=== PATIENT | male | born 1950 | race Caucasian/White ===

== ENCOUNTER → 2017-07-06 | Outpatient (CLI) | payer OTHER, BC ==
[~2017-07-06] MED LIST: ATEN50TA8 PO; FINA5TAB4 PO; FLM4 PO; MAGN400T6 PO; OXGN; POTA20TA16 PO; PROB1TAB16 PO; SPIR25TA PO; TORS20TA2 PO; WARF5TAB7 PO; WARF7.5T4 PO
--- NOTE | 2017-07-06 08:46 | DIAGNOSTIC IMAGING REPORT ---
NUCLEAR PULMONARY VENTILATION/PERFUSION SCAN CLINICAL HISTORY: Pulmonary artery hypertension.. COMPARISON STUDY: Chest x-ray dated 10/22/2015.. TECHNIQUE: Initially, ventilation images of both lungs are obtained following the inhalation of 33.7 mCi of aerosolized technetium 99m DTPA. Subsequently, perfusion images of both lungs were obtained following the IV administration of 5.7 mCi of technetium 99m MAA. Ventilation and perfusion images were acquired in the anterior, posterior, and oblique projections. FINDINGS: A chest x-ray performed 10/22/2015 shows cardiomegaly and advanced parenchymal lung disease The ventilation of both lungs is markedly heterogeneous. Perfusion of both lungs is markedly heterogeneous with numerous subsegmental perfusion defects identified. IMPRESSION: Findings are indeterminant for pulmonary embolus which is not excluded. Electronically signed by: Jason Mir M.D. 07/06/2017 8:45 AM Dictated Date/Time: 07/06/2017 8:43 AM
--- NOTE | 2017-07-06 09:22 | DIAGNOSTIC IMAGING REPORT ---
TWO VIEW CHEST CLINICAL HISTORY: Pulmonary hypertension. FINDINGS: PA and lateral chest radiographs are compared to study dated 10/20/2015. The heart is enlarged and there is atherosclerotic calcification of the thoracic aorta. The pulmonary vasculature is noncongested. There is no lobar consolidation or pleural effusion. Changes of interstitial lung disease are similar to previous. There is no pneumothorax. The bony thorax appears intact. A benign-appearing sclerotic lesion is noted in the left humeral head. IMPRESSION: 1. No acute cardiopulmonary abnormality. 2. Cardiomegaly and changes of chronic interstitial lung disease are similar to previous. Electronically signed by: Jason Mir M.D. 07/06/2017 9:21 AM Dictated Date/Time: 07/06/2017 9:14 AM
== END | disposition home or self-care (01) ==
LOC: C.NUCL 07:27
PROVIDERS: ATTEND Internal Medicine Pulmonary Disease
DX: I27.2 Other secondary pulmonary hypertension (principal)

== ENCOUNTER 2020-03-12 17:16 | Inpatient (IN) ==
--- OUTSIDE RECORDS SUMMARY | 2020-03-12 17:19 | External Medical Summary | Continuity of Care Document ---
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 Quantity: 90 Refills: 3 Atenolol 100 MG Oral Tablet; TAKE 1 TABLET DAILY DIRECTED . Refills: 0 hydroCHLOROthiazide 25 MG Oral Tablet; TAKE 1 TABLET DAILY. Quantity: 30 Refills: 5 Lisinopril 20 MG Oral Tablet; TAKE 1 TABLET DAILY. Quantity: 30 Refills: 5 Coumadin 5 MG Oral Tablet; TAKE DIRECTED. Quantity: 50 Refills: 5 Nasonex 50 MCG/ACT Nasal Suspension; ins till 2 sprays into each nostril once daily VINCE Arce Start: 17-Feb-2013 Quantity: 1 17 GM Inhaler Refills: 0 Procedures History of Complete Colonoscopy Status: Completed History of Hernia Repair Status: Complet ed History of Shoulder Surgery Status: Comp leted Immunizations Immunizations not documented Family History Unknown Family Member Family history of Colon Cancer (V16.0) Status: Active C omments: Family History Family history of Hypertension (V17.49) Status: Active Comments: Family History Family history of Thyroid Cancer Status: Active Comment s: Family History Social History - Smoking Status Smokes tobacco daily Plan of Treatment Planned Observations Planned Goals not documented Results No Known Results Results not documented
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
[2020-03-12 17:42] LABS: Appearance Urine Cloudy (Clear); Bacteria Urine Automated Negative (Negative); Bilirubin Urine Negative (Negative); Blood Urine Negative (Negative); Color Urine Dark Yellow; Epithelial Cell Urine Auto 0-5 /lpf (0-5); Glucose Urine UA Negative (Negative); Ketones Urine Negative (Negative); Leukocyte Esterase Urine Negative (Negative); Nitrite Urine Negative (Negative); Protein Urine Negative (Negative); RBC Urine Automated 0-4 /hpf (0-4); Urobilinogen Urine Negative (Negative); WBC Urine Automated 0 /hpf (0-5); pH Urine 7.5 (4.5-7.5)
--- NOTE | 2020-03-12 17:54 | XRay Report ---
XR chest 1V portable CLINICAL HISTORY: Altered mental status. COMPARISON STUDY: Chest radiograph October 22, 2015 and July 06, 2017. FINDINGS: No pneumothorax or pleural effusion is noted. Diffuse interstitial thickening is similar to prior exams. No superimposed consolidation is noted. Moderate cardiomegaly is unchanged. Bilateral h ilar prominence is unchanged. IMPRESSION: 1. No change in diffuse interstitial thickening suggestive of interstitial lung disease. No superimpo sed consolidation. 2. Stable cardiomegaly. ACT 112: Negative or not required by law. Electronically signed by: Ray Matthew M.D. 03/12/2020 5:53 PM
[2020-03-12 18:06] LABS: Basophils # (auto) 0.02 K/uL (0-0.2); Basophils % (auto) 0.3 %; Eosinophils # (auto) 0.03 K/uL (0-0.5); Eosinophils % (auto) 0.4 %; Hematocrit (blood only) 48.3 % (42-52); Hemoglobin 16.3 g/dL (14.0-18.0); Immature Granulocytes # (auto) 0.02 K/uL (0.00-0.02); Immature Granulocytes % (auto) 0.3 %; Lymphocytes # (auto) 1.23 K/uL (1.2-3.4); Mean Corpuscular Hemoglobin 32.4 pg (25-34); Mean Corpuscular Hgb Conc 33.7 g/dL (32-36); Mean Platelet Volume 10.2 fL (7.4-10.4); Monocytes # (auto) 0.46 K/uL (0.11-0.59); Monocytes % (auto) 6.7 %; Neutrophils # (auto) 5.08 K/uL (1.4-6.5); Neutrophils % (auto) 74.3 %; Platelet Count 124 K/uL (130-400); RDW Coefficient of Variation 16.6 % (11.5-14.5); RDW Standard Deviation 58.2 fL (36.4-46.3); Red Blood Count 5.03 M/uL (4.7-6.1); White Blood Count 6.84 K/uL (4.8-10.8)
[2020-03-12 18:08] LABS: Base Excess VBG 2.7 mEq/L; HCO3 VBG 30 mmol/L; PCO2 VBG 54 mmHg (38-50); PO2 VBG 25 mmHg; pH VBG 7.36 (7.36-7.41)
[2020-03-12 18:15] LABS: Amphetamines+Metham, Urine Neg (Neg); Barbiturates, Urine Neg (Neg); Benzodiazepine, Urine Neg (Neg); Cocaine, Urine Neg (Neg); MDMA (Ecstacy), Urine Neg (Neg); Methadone, Urine Neg (Neg); Opiate, Urine Neg (Neg); Phencyclidine, Urine Neg (Neg)
[2020-03-12 18:18] LABS: INR 2.3 (0.9-1.1); Partial Thromboplastin Ratio 1.2; Partial Thromboplastin Time 34.2 Seconds (21.0-31.0); Prothrombin Time 23.1 Seconds (9.0-12.0)
--- NOTE | 2020-03-12 18:18 | CT Scan Report ---
CT OF THE HEAD WITHOUT CONTRAST CLINICAL HISTORY: altered MS COMPARISON STUDY: No previous studies for comparison. CT DOSE: 729.78 mGycm TECHNIQUE: Helical axial images of the head were obtained without IV contrast. Automated exposure con trol was utilized for the study. A dose lowering technique was utilized adhering to the principles o f ALARA. FINDINGS: No acute intracranial hemorrhage, midline shift or mass effect is present. The ventricular system is unremarkable. The basilar cisterns are patent. White matter hypodensity suggests small vess el disease. No extra-axial collections are present. There are no findings to suggest acute dural sinu s thrombosis or acute territorial infarct. No significant calvarial abnormalities are present. Visual ized portions of the sinuses and mastoid air cells are clear with the exception of minimal calcific t hickening/secretions within the left maxillary sinus. IMPRESSION: No acute intracranial findings. ACT 112: Negative or not required by law. Electronically signed by: Ray Matthew M.D. 03/12/2020 6:17 PM
[2020-03-12 18:25] LABS: Alanine Aminotransferase 8 U/L (12-78); Albumin Level 3.2 gm/dl (3.4-5.0); Aspartate Aminotransferase 18 U/L (15-37); BUN Creatinine Ratio 10.7 (10-20); Blood Urea Nitrogen 11 mg/dl (7-18); Calcium 8.6 mg/dl (8.5-10.1); Carbon Dioxide 28 mmol/L (21-32); Chloride 92 mmol/L (98-107); Creatinine Clr Calc Pharmacy 77.1 ml/min; Est GFR (African American) 87.7; Est GFR (Non-African American) 75.7; Glucose 115 mg/dl (70-99); Lipase 43 U/L (73-393); Magnesium 1.8 mg/dl (1.8-2.4); Potassium 3.9 mmol/L (3.5-5.1); Sodium 130 mmol/L (136-145)
[2020-03-12 18:31] LABS: Albumin Globulin Ratio 0.7 (0.9-2); Alkaline Phosphatase 121 U/L (45-117); Bilirubin,Total 2.5 mg/dl (0.2-1); Globulin 4.6 gm/dl (2.5-4.0); NT Pro B Type Natriuretic Pept 3823 pg/ml (0-900); Total Protein 7.8 gm/dl (6.4-8.2); Troponin I < 0.015 ng/ml (0-0.045)
[2020-03-12 18:33] LABS: Oxygen Saturation VBG < 60.0 %
[2020-03-12] MEDS ORDERED: LORazepam 1 MG/2 ML VIAL IV STA (21:43)
[2020-03-12] MEDS ORDERED: FUROSEMIDE 40 MG/4 ML VIAL IV STA (22:09)
[2020-03-12] MEDS ORDERED: DIGOXIN 250 MCG in SYRINGE 9 ML IV STA (22:09)
[2020-03-12] MEDS ORDERED: MAGNESIUM SULFATE / D5W 1 GM/100 ML BAG IV STA (22:12)
[2020-03-12] MEDS ORDERED: POTASSIUM CHLORIDE 20 MEQ TABCR PO STA (22:17)
[2020-03-12 22:37] LABS: Thyroid Stimulating Hormone 7.59 uIu/ml (0.300-4.500)
[2020-03-12 22:55] LABS: T4 Free Thyroxine 1.41 ng/dl (0.8-1.6)
[2020-03-12] MEDS ORDERED: XOPENEX/ATROVENT 1.25mg/0.5MG NEB COMBO NEB STA (22:55)
[2020-03-12] MEDS ORDERED: IPRATROPIUM BROMIDE NEB SOLN 0.02% 2.5 ML VIAL INH STA (23:00)
[2020-03-12] MEDS ORDERED: LEVALBUTEROL 1.25MG/0.5ML NEB INH STA (23:01)
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
[2020-03-12] MEDS ORDERED: NITROGLYCERIN SL 0.4 MG/TAB TAB SL PRN (23:53)
[2020-03-12] MEDS ORDERED: IPRATROPIUM BROMIDE NEB SOLN 0.02% 2.5 ML VIAL INH PRN (23:53)
[2020-03-12] MEDS ORDERED: LEVALBUTEROL 1.25MG/0.5ML NEB INH PRN (23:53)
[2020-03-12] MEDS ORDERED: XOPENEX/ATROVENT 1.25mg/0.5MG NEB COMBO NEB PRN (23:53)
[2020-03-12] MEDS ORDERED: OLANZapine 10 MG/2.1 ML SDV IM PRN (23:53)
[2020-03-13] MEDS ORDERED: ACETAMINOPHEN 325 MG TAB PO PRN (00:17)
[2020-03-13 07:10] LABS: Basophils # (auto) 0.02 K/uL (0-0.2); Basophils % (auto) 0.4 %; Eosinophils # (auto) 0.07 K/uL (0-0.5); Eosinophils % (auto) 1.4 %; Hematocrit (blood only) 44.7 % (42-52); Hemoglobin 14.9 g/dL (14.0-18.0); Immature Granulocytes # (auto) 0.01 K/uL (0.00-0.02); Immature Granulocytes % (auto) 0.2 %; Lymphocytes # (auto) 1.28 K/uL (1.2-3.4); Lymphocytes % (auto) 24.8 %; Mean Corpuscular Hgb Conc 33.3 g/dL (32-36); Mean Corpuscular Volume 95.9 fL (80-100); Monocytes # (auto) 0.42 K/uL (0.11-0.59); Monocytes % (auto) 8.1 %; Neutrophils # (auto) 3.36 K/uL (1.4-6.5); Neutrophils % (auto) 65.1 %; Nucleated RBC # (auto) 0.04 K/uL (0-0); Nucleated RBC % (auto) 0.7 %; Platelet Count 122 K/uL (130-400); RDW Coefficient of Variation 16.5 % (11.5-14.5); RDW Standard Deviation 56.7 fL (36.4-46.3); Red Blood Count 4.66 M/uL (4.7-6.1); White Blood Count 5.16 K/uL (4.8-10.8)
[2020-03-13 07:17] LABS: INR 2.1 (0.9-1.1); Prothrombin Time 21.3 Seconds (9.0-12.0)
[2020-03-13 07:36] LABS: Calcium 8.7 mg/dl (8.5-10.1); Creatinine Clr Calc Pharmacy 98.3 ml/min; Est GFR (African American) 107.1; Est GFR (Non-African American) 92.4; Potassium 4.2 mmol/L (3.5-5.1)
[2020-03-13 07:46] LABS: Thyroid Stimulating Hormone 8.4 uIu/ml (0.300-4.500)
[2020-03-13 08:17] LABS: Folate (Folic Acid) 9.79 ng/ml (>5.38)
[2020-03-13] MEDS: LACTOBACILLUS ACIDOPHILUS (FLORANEX) TAB PO SCH (08:27)
[2020-03-13] MEDS: POTASSIUM CHLORIDE 20 MEQ TABCR PO SCH (08:27)
[2020-03-13] MEDS: TAMSULOSIN HCL 0.4 MG CAP PO SCH (08:28)
[2020-03-13] MEDS: TORSEMIDE 20 MG TAB PO SCH ×2 (08:28→11:25)
[2020-03-13] MEDS: SPIRONOLACTONE 25 MG TAB PO SCH ×2 (08:28→16:09)
[2020-03-13] MEDS: PANTOprazole 40 MG TAB PO SCH (08:28)
[2020-03-13] MEDS: METOPROLOL SUCC 25MG EXT REL TAB PO SCH (09:09)
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
[2020-03-13] MEDS: DIGOXIN 0.125 MG TAB PO SCH (16:07)
--- NOTE | 2020-03-13 16:28 | Electrocardiogram Report ---
Test Reason : Blood Pressure : / mmHG Vent. Rate : 100 BPM Atrial Rate : 125 BPM P-R Int : 000 ms QRS Dur : 116 ms QT Int : 350 ms P-R-T Axes : 000 123 -55 degrees QTc Int : 451 ms Atrial fibrillation Right axis deviation Incomplete right bundle branch block Septal infarct , age undetermined Abnormal ECG When compared with ECG of 24-Oct-2015 07:18, T wave inversion more evident in Inferolateral leads Septal infarct is now Present Confirmed by Vipul Woody ([id number]) on 03/13/2020 4:27:45 PM Referred By: REFERRED SELF Confirmed By:Vipul Woody
--- NOTE | 2020-03-13 17:05 | Hospitalist Progress Note ---
Date of Service March 13, 2020 Assessment & Plan (1) Afib: Mild elevation in rate secondary to agitation, INR therapeutic Denies any cardiac symptoms Heart rate remains controlled Memory impairment/behavioral changes in last 2 months Requiring one-to-one sitter now Appreciate neurology input and recommendation Mood disorder with possible history of suicidality Appreciate psychiatric input and recommendation Will adjust medication accordingly Elevated TSH, possible hypothyroidism Mild elevation of TSH noted from time to time on review of outpatient blood work Chronic respiratory failure secondary to COPD/pulmonary fibrosis on home O2, pulmonary status at baseline Right-sided heart failure/cor pulmonale as per records (EF 55%, 2019), some congestion on CXR Cirrhosis/portal hypertension as per records, no vertical position Past alcohol use Hypertension, stable Ongoing tobacco abuse DVT prophylaxis. Coumadin INR goal between 2 and 3 Full code as per . Patient's requesting updates for providers. Ms. Kenisha Flanagan, contact #[phone]. Admission and Anticipated Discharge Date Admission Date: March 13, 2020 Subjective The patient was seen and examined in telemetry unit Remains pleasantly confused but denies any acute symptoms No chest pain, palpitation, no shortness of breath, no abdominal pain, nausea and or vomiting Review of Systems Review of Systems: All systems reviewed and are unremarkable except as noted below Neurologic: + confusion (Pleasantly confused) and + memory loss Physical Exam Physical Exam: Lying in bed comfortably Constitutional: well developed and well nourished; no acute distress and not ill appearing Eyes: PERRL, conjunctivae normal, anicteric sclerae ENMT: external ear and nose normal, oropharynx normal Neck: trachea midline, no thyromegaly Respiratory: no respiratory distress Auscultation: lungs clear to ausc ultation bilaterally Cardiovascular: Rate/Rhythm: regular rate and regular rhythm Heart Sounds: no murmur Gastrointestinal (Abdomen): Inspection/Auscultation: + abdomen distended and normal bowel sounds Percussion/Palpation: abdomen soft; abdomen nontender Musculoskeletal: No acute arthritis involving any joints Neurologic: moves all extremities; no focal motor deficits Pleasantly confused Lymphatic: no cervical or axillary lymphadenopathy Results & Data Results & Data ([facility]) Vital Signs (Past 12 Hours) Vital Signs Temp Pulse Pulse Resp BP BP Pulse Ox 03/13/20 16:07 94 H 03/13/20 11:11 36.3 C L 96 H 19 102/71 89 L 03/13/20 07:53 36.8 C 85 20 121/66 96 Laboratory Results Short CBC 03/12/20 03/13/20 Range/Units 17:54 06:32 WBC 6.84 5.16 (4.8-10.8) K/uL Hgb 16.3 14.9 (14.0-18.0) g/dL Hct 48.3 44.7 (42-52) % Plt Count 124 L 122 L (130-400) K/uL BMP 03/12/20 03/13/20 17:54 06:32 Sodium 130 L 131 L Potassium 3.9 4.2 Chloride 92 L 95 L Carbon Dioxide 28 29 BUN 11 10 Creatinine 1.02 0.80 Glucose 115 H 83 Calcium 8.6 8.7 Cardiac Enzymes 03/12/20 Range/Units 17:54 Troponin I < 0.015 (0-0.045) ng/ml Liver Function 03/12/20 Range/Units 17:54 Total Bilirubin 2.5 H (0.2-1) mg/dl AST 18 (15-37) U/L ALT 8 L (12-78) U/L Alkaline Phosphatase 121 H (45-117) U/L Albumin 3.2 L (3.4-5.0) gm/dl Urine 03/12/20 Range/Units 17:35 Urine Color Dark Yellow Urine Appearance Cloudy A (Clear) Urine pH 7.5 (4.5-7.5) Ur Specific [place] 1.010 (1.000-1.030) Urine Protein Negative (Negative) Urine Glucose (UA) Negative (Negative) Medications Administered Current Inpatient Medications Acetaminophen (Tylenol) 325 mg PO Q6H PRN PRN Reason: Mild Pain Stop: 04/12/20 00:16 Digoxin (Lanoxin) 0.125 mg PO MoWeFr@1600 [facility] Stop: 04/12/20 15:59 Last Admin: 03/13/20 16:07 Dose: 0.125 mg Documented by: Escitalopram Oxalate (Lexapro Tab) 5 mg PO HS [facility] Stop: 04/12/20 20:59 Ipratropium [place] (Atrovent 0.02% 0.5mg/2.5ml) 0.5 mg INH Q4H PRN PRN Reason: Shortness Of Breath Or Wheezing Stop: 04/11/20 23:52 Lactobacillus Acidophilus (Floranex) 4 tab PO DAILY [facility] Stop: 04/12/20 08:59 Last Admin: 03/13/20 08:27 Dose: 4 tab Documented by: Levalbuterol HCl (Xopenex 1.25mg/0.5ml Neb) 1.25 mg INH Q4H PRN PRN Reason: Shortness Of Breath Or Wheezing Stop: 04/11/20 23:52 Magnesium Oxide (Mag-Ox) 400 mg PO HS [facility] Stop: 04/12/20 20:59 Metoprolol Succinate (Toprol Xl) 12.5 mg PO QAM [facility] Stop: 04/12/20 08:59 Last Admin: 03/13/20 09:09 Dose: 12.5 mg Documented by: Mirtazapine (Remeron) 15 mg PO HS [facility] Stop: 04/12/20 20:59 Nitroglycerin (Nitrostat) 0.4 mg SL UD PRN PRN Reason: Chest Pain Stop: 04/11/20 23:52 Olanzapine (Zyprexa) 2.5 mg IM Q4H PRN PRN Reason: Anxiety/Agitation Stop: 04/11/20 23:52 Pantoprazole Sodium (Protonix) 40 mg PO DAILY [facility] Stop: 04/12/20 08:59 Last Admin: 03/13/20 08:28 Dose: 40 mg Documented by: Potassium Chloride (Klor-Con M20) 40 meq PO QAM [facility] Stop: 04/12/20 08:59 Last Admin: 03/13/20 08:27 Dose: 40 meq Documented by: Spironolactone (Aldactone) 50 mg PO BID17 [facility] Stop: 04/12/20 08:59 Last Admin: 03/13/20 16:09 Dose: 50 mg Documented by: Tamsulosin HCl (Flomax) 0.4 mg PO DAILY [facility] Stop: 04/12/20 08:59 Last Admin: 03/13/20 08:28 Dose: 0.4 mg Documented by: Torsemide (Demadex) 80 mg PO BID@0900,1200 [facility] Stop: 04/12/20 08:59 Last Admin: 03/13/20 11:25 Dose: 80 mg Documented by:
[2020-03-13] MEDS: ESCITALOPRAM OXALATE 10 MG TAB PO SCH (20:10)
[2020-03-13] MEDS: MAGNESIUM OXIDE 400 MG TAB PO SCH (20:11)
[2020-03-13] MEDS: MIRTAZAPINE TAB 15 MG TAB PO SCH (20:12)
[2020-03-13] MEDS: ZOLPIDEM TARTRATE 5 MG TAB PO PRN (22:22)
[2020-03-14 05:58] LABS: Basophils # (auto) 0.03 K/uL (0-0.2); Basophils % (auto) 0.4 %; Eosinophils # (auto) 0.11 K/uL (0-0.5); Eosinophils % (auto) 1.6 %; Hematocrit (blood only) 45.3 % (42-52); Hemoglobin 14.8 g/dL (14.0-18.0); Immature Granulocytes # (auto) 0.03 K/uL (0.00-0.02); Immature Granulocytes % (auto) 0.4 %; Lymphocytes # (auto) 1.68 K/uL (1.2-3.4); Lymphocytes % (auto) 24.9 %; Mean Corpuscular Hemoglobin 31.7 pg (25-34); Mean Corpuscular Hgb Conc 32.7 g/dL (32-36); Mean Platelet Volume 9.9 fL (7.4-10.4); Monocytes # (auto) 0.54 K/uL (0.11-0.59); Neutrophils # (auto) 4.37 K/uL (1.4-6.5); Neutrophils % (auto) 64.7 %; Platelet Count 121 K/uL (130-400); RDW Coefficient of Variation 16.5 % (11.5-14.5); RDW Standard Deviation 58.1 fL (36.4-46.3); Red Blood Count 4.67 M/uL (4.7-6.1); White Blood Count 6.76 K/uL (4.8-10.8)
[2020-03-14 06:22] LABS: Albumin Level 2.6 gm/dl (3.4-5.0); BUN Creatinine Ratio 15.5 (10-20); Calcium 8.2 mg/dl (8.5-10.1); Creatinine Clr Calc Pharmacy 87.4 ml/min; Est GFR (African American) 102.1; Est GFR (Non-African American) 88.1; Magnesium 2.1 mg/dl (1.8-2.4); Potassium 4.3 mmol/L (3.5-5.1)
[2020-03-14 06:25] LABS: Albumin Globulin Ratio 0.6 (0.9-2); Bilirubin,Total 2.1 mg/dl (0.2-1); Globulin 4.3 gm/dl (2.5-4.0); Total Protein 6.9 gm/dl (6.4-8.2)
[2020-03-14] MEDS: POTASSIUM CHLORIDE 20 MEQ TABCR PO SCH (08:46)
[2020-03-14] MEDS: SPIRONOLACTONE 25 MG TAB PO SCH ×2 (08:47→17:42)
[2020-03-14] MEDS: LACTOBACILLUS ACIDOPHILUS (FLORANEX) TAB PO SCH (08:47)
[2020-03-14] MEDS: PANTOprazole 40 MG TAB PO SCH (08:47)
[2020-03-14] MEDS: METOPROLOL SUCC 25MG EXT REL TAB PO SCH (08:47)
[2020-03-14] MEDS: TAMSULOSIN HCL 0.4 MG CAP PO SCH (08:47)
[2020-03-14] MEDS: TORSEMIDE 20 MG TAB PO SCH ×2 (08:48→11:30)
--- NOTE | 2020-03-14 14:51 | Hospitalist Progress Note ---
Date of Service March 14, 2020 Assessment & Plan (1) Afib: Mild elevation in rate secondary to agitation, INR therapeutic Denies any cardiac symptoms Heart rate remains controlled Acute frontotemporal dementia Memory impairment/behavioral changes in last 2 months Requiring one-to-one sitter now Appreciate neurology input and recommendation Mood disorder with possible history of suicidality Appreciate psychiatric input and recommendation Will adjust medication accordingly Denies any suicidal and/or homicidal ideation Remains stable as of this morning Elevated TSH, possible hypothyroidism Mild elevation of TSH noted from time to time on review of outpatient blood work Chronic respiratory failure secondary to COPD/pulmonary fibrosis on home O2, pulmonary status at baseline Chronic systolic right ventricular CHF Right-sided heart failure/cor pulmonale as per records (EF 55%, 2019), some congestion on CXR Cirrhosis/portal hypertension as per records, no vertical position Past alcohol use Hypertension, stable Ongoing tobacco abuse DVT prophylaxis. Coumadin INR goal between 2 and 3 Full code as per . Patient's requesting updates for providers. Ms. Kenisha Flanagan, contact #[phone]. Admission and Anticipated Discharge Date Admission Date: March 13, 2020 Subjective The patient was seen and examined in telemetry unit Remains pleasantly confused but denies any acute symptoms No chest pain, palpitation, no shortness of breath, no abdominal pain, nausea and or vomiting Review of Systems Review of Systems: All systems reviewed and are unremarkable except as noted below Neurologic: + confusion (Pleasantly confused) and + memory loss Physical Exam Physical Exam: Lying in bed comfortably Constitutional: well developed and well nourished; no acute distress and not ill appearing Eyes: PERRL, conjunctivae normal, anicteric sclerae ENMT: external ear and nose normal, oropharynx normal Neck: trachea midline, no thyromegaly Respiratory: no respiratory distress Auscultation: lungs clear to auscultation bilaterally Cardiovascular: Rate/Rhythm: regular rate and regular rhythm Heart Sounds: no murmur Gastrointestinal (Abdomen): Inspection/Auscultation: + abdomen distended and normal bowel sounds Percussion/Palpation: abdomen soft; abdomen nontender Neurologic: moves all extremities; no focal motor deficits Alert ,awake and oriented times. Has moderate to severe memory impairment Psychiatric: Affect: euthymic affect Insight: + limited insight Judgement: + poor judgement Lymphatic: no cervical or axillary lymphadenopathy Results & Data Results & Data ([facility]) Vital Signs (Past 12 Hours) Vital Signs Temp Pulse Pulse Resp BP BP Pulse Ox 03/14/20 11:35 36.4 C L 87 18 108/68 94 03/14/20 08:31 99 H 20 93 03/14/20 08:00 36.3 C L 97 H 18 102/71 96 03/14/20 06:07 92 H 16 92 03/14/20 03:34 36.5 C 96 H 19 98/64 L 91 Laboratory Results Short CBC 03/14/20 Range/Units 05:33 WBC 6.76 (4.8-10.8) K/uL Hgb 14.8 (14.0-18.0) g/dL Hct 45.3 (42-52) % Plt Count 121 L (130-400) K/uL BMP 03/14/20 05:33 Sodium 129 L Potassium 4.3 Chloride 94 L Carbon Dioxide 28 BUN 14 Creatinine 0.90 Glucose 100 H Calcium 8.2 L Liver Function 03/14/20 Range/Units 05:33 Total Bilirubin 2.1 H (0.2-1) mg/dl AST 18 (15-37) U/L ALT 11 L (12-78) U/L Alkaline Phosphatase 111 (45-117) U/L Albumin 2.6 L (3.4-5.0) gm/dl Medications Administered Current Inpatient Medications Acetaminophen (Tylenol) 325 mg PO Q6H PRN PRN Reason: Mild Pain Stop: 04/12/20 00:16 Digoxin (Lanoxin) 0.125 mg PO MoWeFr@1600 [facility] Stop: 04/12/20 15:59 Last Admin: 03/13/20 16:07 Dose: 0.125 mg Documented by: Escitalopram Oxalate (Lexapro Tab) 5 mg PO HS [facility] Stop: 04/12/20 20:59 Last Admin: 03/13/20 20:10 Dose: 5 mg Documented by: Ipratropium [place] (Atrovent 0.02% 0.5mg/2.5ml) 0.5 mg INH Q4H PRN PRN Reason: Shortness Of Breath Or Wheezing Stop: 04/11/20 23:52 Last Admin: 03/14/20 06:04 Dose: 0.5 mg Documented by: Lactobacillus Acidophilus (Floranex) 4 tab PO DAILY [facility] Stop: 04/12/20 08:59 Last Admin: 03/14/20 08:47 Dose: 4 tab Documented by: Levalbuterol HCl (Xopenex 1.25mg/0.5ml Neb) 1.25 mg INH Q4H PRN PRN Reason: Shortness Of Breath Or Wheezing Stop: 04/11/20 23:52 Last Admin: 03/14/20 06:04 Dose: 1.25 mg Documented by: Magnesium Oxide (Mag-Ox) 400 mg PO HS [facility] Stop: 04/12/20 20:59 Last Admin: 03/13/20 20:11 Dose: 400 mg Documented by: Metoprolol Succinate (Toprol Xl) 12.5 mg PO QAM [facility] Stop: 04/12/20 08:59 Last Admin: 03/14/20 08:47 Dose: 12.5 mg Documented by: Mirtazapine (Remeron) 15 mg PO HS [facility] Stop: 04/12/20 20:59 Last Admin: 03/13/20 20:12 Dose: 15 mg Documented by: Nitroglycerin (Nitrostat) 0.4 mg SL UD PRN PRN Reason: Chest Pain Stop: 04/11/20 23:52 Olanzapine (Zyprexa) 2.5 mg IM Q4H PRN PRN Reason: Anxiety/Agitation Stop: 04/11/20 23:52 Pantoprazole Sodium (Protonix) 40 mg PO DAILY [facility] Stop: 04/12/20 08:59 Last Admin: 03/14/20 08:47 Dose: 40 mg Documented by: Potassium Chloride (Klor-Con M20) 40 meq PO QAM [facility] Stop: 04/12/20 08:59 Last Admin: 03/14/20 08:46 Dose: 40 meq Documented by: Spironolactone (Aldactone) 50 mg PO BID17 [facility] Stop: 04/12/20 08:59 Last Admin: 03/14/20 08:47 Dose: 50 mg Documented by: Tamsulosin HCl (Flomax) 0.4 mg PO DAILY [facility] Stop: 04/12/20 08:59 Last Admin: 03/14/20 08:47 Dose: 0.4 mg Documented by: Torsemide (Demadex) 80 mg PO BID@0900,1200 [facility] Stop: 04/12/20 08:59 Last Admin: 03/14/20 11:30 Dose: 80 mg Documented by: Zolpidem Tartrate (Ambien) 5 mg PO HS PRN PRN Reason: Sleep Stop: 04/12/20 21:57 Last Admin: 03/13/20 22:22 Dose: 5 mg Documented by:
[2020-03-14] MEDS: MIRTAZAPINE TAB 15 MG TAB PO SCH (20:07)
[2020-03-14] MEDS: ESCITALOPRAM OXALATE 10 MG TAB PO SCH (20:07)
[2020-03-14] MEDS: MAGNESIUM OXIDE 400 MG TAB PO SCH (20:07)
[2020-03-15] MEDS: METOPROLOL SUCC 25MG EXT REL TAB PO SCH (07:35)
[2020-03-15] MEDS: TAMSULOSIN HCL 0.4 MG CAP PO SCH (07:36)
[2020-03-15] MEDS: PANTOprazole 40 MG TAB PO SCH (07:36)
[2020-03-15] MEDS: TORSEMIDE 20 MG TAB PO SCH ×2 (07:36→11:57)
[2020-03-15] MEDS: SPIRONOLACTONE 25 MG TAB PO SCH ×2 (07:37→16:48)
[2020-03-15] MEDS: LACTOBACILLUS ACIDOPHILUS (FLORANEX) TAB PO SCH (07:37)
[2020-03-15] MEDS: POTASSIUM CHLORIDE 20 MEQ TABCR PO SCH (07:37)
--- NOTE | 2020-03-15 14:16 | Hospitalist Progress Note ---
Date of Service March 15, 2020 Assessment & Plan (1) Afib: Mild elevation in rate secondary to agitation, INR therapeutic Denies any cardiac symptoms Heart rate remains controlled Acute frontotemporal dementia Memory impairment/behavioral changes in last 2 months Requiring one-to-one sitter now Appreciate neurology input and recommendation Has been getting occasional confusion Mood disorder with possible history of suicidality Appreciate psychiatric input and recommendation Will adjust medication accordingly Denies any suicidal and/or homicidal ideation Remains stable as of this morning and not being aggressive Not been receptive to current recommendation of going to skilled care facility Elevated TSH, possible hypothyroidism Mild elevation of TSH noted from time to time on review of outpatient blood work Chronic respiratory failure secondary to COPD/pulmonary fibrosis on home O2, pulmonary status at baseline Chronic systolic right ventricular CHF Right-sided heart failure/cor pulmonale as per records (EF 55%, 2018), some congestion on CXR Cirrhosis/portal hypertension as per records, no vertical position Past alcohol use Hypertension, stable Ongoing tobacco abuse DVT prophylaxis. Coumadin INR goal between 2 and 3 Full code as per . Patient's requesting updates for providers. Ms. Kenisha Flanagan, contact #[phone]. We will update his this afternoon Admission and Anticipated Discharge Date Admission Date: March 13, 2020 Subjective The patient was seen and examined in telemetry unit Remains pleasantly confused but denies any acute symptoms No chest pain, palpitation, no shortness of breath, no abdominal pain, nausea and or vomiting 03/15/2020 Patient was seen and examined in medical floor He remains confused but not showing any aggressive behavior Denies any significant symptoms He wants to go home but he will need to go to rehab for short-term Review of Systems Review of Systems: All systems reviewed and are unremarkable except as noted below Neurologic: + confusion (Pleasantly confused) and + memory loss Physical Exam Physical Exam: Lying in bed comfortably Constitutional: well developed, well nourished and comfortable; no acute distress and not ill appearing Eyes: PERRL, conjunctivae normal, anicteric sclerae ENMT: external ear and nose normal, oropharynx normal Neck: trachea midline, no thyromegaly Respiratory: no respiratory distress Auscultation: lungs clear to auscultation bilaterally Cardiovascular: Rate/Rhythm: regular rate and regular rhythm Heart Sounds: no murmur Gastrointestinal (Abdomen): Inspection/Auscultation: + abdomen distended and normal bowel sounds Percussion/Palpation: abdomen soft; abdomen nontender Neurologic: moves all extremities, awake and + confused; no focal motor deficits Psychiatric: Affect: + depressed affect Mood: + depressed mood Insight: + limited insight Judgement: + poor judgement Lymphatic: no cervical or axillary lymphadenopathy Results & Data Results & Data ([facility]) Vital Signs (Past 12 Hours) Vital Signs Temp Pulse Resp BP Pulse Ox 03/15/20 11:18 87 L 03/15/20 07:49 36.7 C 92 H 17 99/66 L 95 Medications Administered Current Inpatient Medications Acetaminophen (Tylenol) 325 mg PO Q6H PRN PRN Reason: Mild Pain Stop: 04/12/20 00:16 Digoxin (Lanoxin) 0.125 mg PO [facility]@1600 [facility] Stop: 04/12/20 15:59 Last Admin: 03/13/20 16:07 Dose: 0.125 mg Documented by: Escitalopram Oxalate (Lexapro Tab) 5 mg PO [facility] Stop: 04/12/20 20:59 Last Admin: 03/14/20 20:07 Dose: 5 mg Documented by: Ipratropium [place] (Atrovent 0.02% 0.5mg/2.5ml) 0.5 mg INH Q4H PRN PRN Reason: Shortness Of Breath Or Wheezing Stop: 04/11/20 23:52 Last Admin: 03/14/20 06:04 Dose: 0.5 mg Documented by: Lactobacillus Acidophilus (Floranex) 4 tab PO DAILY [facility] Stop: 04/12/20 08:59 Last Admin: 03/15/20 07:37 Dose: 4 tab Documented by: Levalbuterol HCl (Xopenex 1.25mg/0.5ml Neb) 1.25 mg INH Q4H PRN PRN Reason: Shortness Of Breath Or Wheezing Stop: 04/11/20 23:52 Last Admin: 03/14/20 06:04 Dose: 1.25 mg Documented by: Magnesium Oxide (Mag-Ox) 400 mg PO [facility] Stop: 04/12/20 20:59 Last Admin: 03/14/20 20:07 Dose: 400 mg Documented by: Metoprolol [facility] ([facility]l) [facility]: 04/12/20 08:59 Last Admin: 03/15/20 07:35 Dose: 12.5 mg Documented by: Mirtazapine (Remeron) 15 mg PO HS [facility] Stop: 04/12/20 20:59 Last Admin: 03/14/20 20:07 Dose: 15 mg Documented by: Nitroglycerin (Nitrostat) 0.4 mg SL UD PRN PRN Reason: Chest Pain Stop: 04/11/20 23:52 Olanzapine (Zyprexa) 2.5 mg IM Q4H PRN PRN Reason: Anxiety/Agitation Stop: 04/11/20 23:52 Pantoprazole Sodium (Protonix) 40 mg PO DAILY [facility] Stop: 04/12/20 08:59 Last Admin: 03/15/20 07:36 Dose: 40 mg Documented by: Potassium Chloride (Klor-Con M20) 40 meq PO QAM [facility] Stop: 04/12/20 08:59 Last Admin: 03/15/20 07:37 Dose: 40 meq Documented by: Spironolactone (Aldactone) 50 mg PO BID17 [facility] Stop: 04/12/20 08:59 Last Admin: 03/15/20 07:37 Dose: 50 mg Documented by: Tamsulosin HCl (Flomax) 0.4 mg PO DAILY [facility] Stop: 04/12/20 08:59 Last Admin: 03/15/20 07:36 Dose: 0.4 mg Documented by: Torsemide (Demadex) 80 mg PO BID@0900,1200 [facility] Stop: 04/12/20 08:59 Last Admin: 03/15/20 11:57 Dose: 80 mg Documented by: Zolpidem Tartrate (Ambien) 5 mg PO HS PRN PRN Reason: Sleep Stop: 04/12/20 21:57 Last Admin: 03/13/20 22:22 Dose: 5 mg Documented by:
[2020-03-15] MEDS: DIGOXIN 0.125 MG TAB PO SCH (16:48)
[2020-03-15] MEDS: MAGNESIUM OXIDE 400 MG TAB PO SCH (20:58)
[2020-03-15] MEDS: MIRTAZAPINE TAB 15 MG TAB PO SCH (20:58)
[2020-03-15] MEDS: ESCITALOPRAM OXALATE 10 MG TAB PO SCH (20:58)
[2020-03-16] MEDS: LACTOBACILLUS ACIDOPHILUS (FLORANEX) TAB PO SCH (08:47)
[2020-03-16] MEDS: TORSEMIDE 20 MG TAB PO SCH ×2 (08:47→12:03)
[2020-03-16] MEDS: PANTOprazole 40 MG TAB PO SCH (08:47)
[2020-03-16] MEDS: METOPROLOL SUCC 25MG EXT REL TAB PO SCH (08:47)
[2020-03-16] MEDS: SPIRONOLACTONE 25 MG TAB PO SCH ×2 (08:48→17:36)
[2020-03-16] MEDS: TAMSULOSIN HCL 0.4 MG CAP PO SCH (08:48)
[2020-03-16] MEDS: POTASSIUM CHLORIDE 20 MEQ TABCR PO SCH (08:48)
--- NOTE | 2020-03-16 13:43 | Hospitalist Progress Note ---
Date of Service March 16, 2020 Assessment & Plan (1) Afib: Mild elevation in rate secondary to agitation, INR therapeutic Denies any cardiac symptoms Heart rate remains controlled Acute frontotemporal dementia Memory impairment/behavioral changes in last 2 months Requiring one-to-one sitter now Appreciate neurology input and recommendation Has been getting occasional confusion Remains confused without any behavioral problem Mood disorder with possible history of suicidality Appreciate psychiatric input and recommendation Will adjust medication accordingly Denies any suicidal and/or homicidal ideation Remains stable as of this morning and not being aggressive Not been receptive to current recommendation of going to skilled care facility Wants to go home this morning-explained the process of discharge to him this morning in detail Elevated TSH, possible hypothyroidism Mild elevation of TSH noted from time to time on review of outpatient blood work Chronic respiratory failure secondary to COPD/pulmonary fibrosis on home O2, pulmonary status at baseline Chronic systolic right ventricular CHF Right-sided heart failure/cor pulmonale as per records (EF 55%, 2019), some congestion on CXR Cirrhosis/portal hypertension as per records, no vertical position Past alcohol use Hypertension, stable Ongoing tobacco abuse DVT prophylaxis. Coumadin INR goal between 2 and 3 Full code as per . Patient's requesting updates for providers. Ms. Kenisha Flanagan, contact #[phone]. We will update his this afternoon Awaiting placement Admission and Anticipated Discharge Date Admission Date: March 13, 2020 Subjective The patient was seen and examined in telemetry unit Remains pleasantly confused but denies any acute symptoms No chest pain, palpitation, no shortness of breath, no abdominal pain, nausea and or vomiting 03/15/2020 Patient was seen and examined in medical floor He remains confused but not showing any aggressive behavior Denies any significant symptoms He wants to go home but he will need to go to rehab for short-term 03/16/20 The patient was seen and examined in the medical floor He remains stable and wants to go home He was explained repeatedly about discharge from the hospital and wired will be going We will update his Review of Systems Review of Systems: All systems reviewed and are unremarkable except as noted below Neurologic: + confusion (Pleasantly confused) and + memory loss Physical Exam Physical Exam: Lying in bed comfortably Constitutional: well developed, well nourished and comfortable; no acute distress and not ill appearing Eyes: PERRL, conjunctivae normal, anicteric sclerae ENMT: external ear and nose normal, oropharynx normal Neck: trachea midline, no thyromegaly Respiratory: no respiratory distress Auscultation: lungs clear to auscultation bilaterally Cardiovascular: Rate/Rhythm: regular rate and regular rhythm Heart Sounds: no murmur Gastrointestinal (Abdomen): Inspection/Auscultation: + abdomen distended and normal bowel sounds Percussion/Palpation: abdomen soft; abdomen nontender Neurologic: moves all extremities, awake and + confused (Remains pleasantly confused without any agitation or behavioral problems); no focal motor deficits Psychiatric: Affect: + depressed affect Mood: + depressed mood Insight: + limited insight Judgement: + poor judgement Lymphatic: no cervical or axillary lymphadenopathy Results & Data Results & Data ([facility]) Vital Signs (Past 12 Hours) Vital Signs Temp Pulse Resp BP Pulse Ox 03/16/20 12:06 36.4 C L 90 18 101/70 96 03/16/20 07:04 36.8 C 92 H 20 91/59 L 90 Medications Administered Current Inpatient Medications Acetaminophen (Tylenol) 325 mg PO Q6H PRN PRN Reason: Mild Pain Stop: 04/12/20 00:16 Digoxin (Lanoxin) 0.125 mg PO [facility]@1600 [facility] Stop: 04/12/20 15:59 Last Admin: 03/15/20 16:48 Dose: 0.125 mg Documented by: Escitalopram Oxalate (Lexapro Tab) 5 mg PO HS [facility] Stop: 04/12/20 20:59 Last Admin: 03/15/20 20:58 Dose: 5 mg Documented by: Ipratropium [place] (Atrovent 0.02% 0.5mg/2.5ml) 0.5 mg INH Q4H PRN PRN Reason: Shortness Of Breath Or Wheezing Stop: 04/11/20 23:52 Last Admin: 03/14/20 06:04 Dose: 0.5 mg Documented by: Lactobacillus Acidophilus (Floranex) 4 tab PO DAILY [facility] Stop: 04/12/20 08:59 Last Admin: 03/16/20 08:47 Dose: 4 tab Documented by: Levalbuterol HCl (Xopenex 1.25mg/0.5ml Neb) 1.25 mg INH Q4H PRN PRN Reason: Shortness Of Breath Or Wheezing Stop: 04/11/20 23:52 Last Admin: 03/14/20 06:04 Dose: 1.25 mg Documented by: Magnesium Oxide (Mag-Ox) 400 mg PO HS [facility] Stop: 04/12/20 20:59 Last Admin: 03/15/20 20:58 Dose: 400 mg Documented by: Metoprolol Succinate (Toprol Xl) 12.5 mg PO QAM [facility] Stop: 04/12/20 08:59 Last Admin: 03/16/20 08:47 Dose: Not Given Documented by: Mirtazapine (Remeron) 15 mg PO HS [facility] Stop: 04/12/20 20:59 Last Admin: 03/15/20 20:58 Dose: 15 mg Documented by: Nitroglycerin (Nitrostat) 0.4 mg SL UD PRN PRN Reason: Chest Pain Stop: 04/11/20 23:52 Olanzapine (Zyprexa) 2.5 mg IM Q4H PRN PRN Reason: Anxiety/Agitation Stop: 04/11/20 23:52 Pantoprazole Sodium (Protonix) 40 mg PO DAILY [facility] Stop: 04/12/20 08:59 Last Admin: 03/16/20 08:47 Dose: 40 mg Documented by: Potassium Chloride (Klor-Con M20) 40 meq PO QAM [facility] Stop: 04/12/20 08:59 Last Admin: 03/16/20 08:48 Dose: 40 meq Documented by: Spironolactone (Aldactone) 50 mg PO BID17 [facility] Stop: 04/12/20 08:59 Last Admin: 03/16/20 08:48 Dose: 50 mg Documented by: Tamsulosin HCl (Flomax) 0.4 mg PO DAILY [facility] Stop: 04/12/20 08:59 Last Admin: 03/16/20 08:48 Dose: 0.4 mg Documented by: Torsemide (Demadex) 80 mg PO BID@0900,1200 [facility] Stop: 04/12/20 08:59 Last Admin: 03/16/20 12:03 Dose: 80 mg Documented by: Zolpidem Tartrate (Ambien) 5 mg PO HS PRN PRN Reason: Sleep Stop: 04/12/20 21:57 Last Admin: 03/13/20 22:22 Dose: 5 mg Documented by:
[2020-03-16] MEDS: ESCITALOPRAM OXALATE 10 MG TAB PO SCH (20:00)
[2020-03-16] MEDS: MAGNESIUM OXIDE 400 MG TAB PO SCH (20:00)
[2020-03-16] MEDS: MIRTAZAPINE TAB 15 MG TAB PO SCH (20:00)
[2020-03-17] MEDS: LACTOBACILLUS ACIDOPHILUS (FLORANEX) TAB PO SCH (09:23)
[2020-03-17] MEDS: TAMSULOSIN HCL 0.4 MG CAP PO SCH (09:23)
[2020-03-17] MEDS: POTASSIUM CHLORIDE 20 MEQ TABCR PO SCH (09:24)
[2020-03-17] MEDS: SPIRONOLACTONE 25 MG TAB PO SCH ×2 (09:24→16:35)
[2020-03-17] MEDS: PANTOprazole 40 MG TAB PO SCH (09:24)
[2020-03-17] MEDS: TORSEMIDE 20 MG TAB PO SCH ×2 (09:24→12:09)
[2020-03-17] MEDS: METOPROLOL SUCC 25MG EXT REL TAB PO SCH (09:24)
--- NOTE | 2020-03-17 12:34 | Hospitalist Progress Note ---
Date of Service March 17, 2020 Assessment & Plan (1) Afib: Mild elevation in rate secondary to agitation, INR therapeutic Denies any cardiac symptoms Heart rate remains controlled Acute frontotemporal dementia Memory impairment/behavioral changes in last 2 months Requiring one-to-one sitter now Appreciate neurology input and recommendation Has been getting occasional confusion Remains confused without any behavioral problem No new issue Mood disorder with possible history of suicidality Appreciate psychiatric input and recommendation Will adjust medication accordingly Denies any suicidal and/or homicidal ideation Remains stable as of this morning and not being aggressive Not been receptive to current recommendation of going to skilled care facility Wants to go home this morning-explained the process of discharge to him this morning in detail No agitation or aggressive behavior Elevated TSH, possible hypothyroidism Mild elevation of TSH noted from time to time on review of outpatient blood work Chronic respiratory failure secondary to COPD/pulmonary fibrosis on home O2, pu lmonary status at baseline Chronic systolic right ventricular CHF Right-sided heart failure/cor pulmonale as per records (EF 55%, 2019), some congestion on CXR Cirrhosis/portal hypertension as per records, no vertical position Past alcohol use Hypertension, stable Ongoing tobacco abuse DVT prophylaxis. Coumadin INR goal between 2 and 3 Full code as per . Patient's requesting updates for providers. Ms. Kenisha Flanagan, contact #[phone]. We will update his this afternoon Awaiting placement Admission and Anticipated Discharge Date Admission Date: March 13, 2020 Subjective The patient was seen and examined in telemetry unit Remains pleasantly confused but denies any acute symptoms No chest pain, palpitation, no shortness of breath, no abdominal pain, nausea and or vomiting 03/15/2020 Patient was seen and examined in medical floor He remains confused but not showing any aggressive behavior Denies any significant symptoms He wants to go home but he will need to go to rehab for short-term 03/16/20 The patient was seen and examined in the medical floor He remains stable and wants to go home He was explained repeatedly about discharge from the hospital and wired will be going We will update his 03/17/2020 The patient was seen and examined in the medical floor He remains stable and denies any complaints He has been waiting to be placed Review of Systems Review of Systems: All systems reviewed and are unremarkable except as noted below Neurologic: + confusion (Pleasantly confused) and + memory loss Physical Exam Physical Exam: Lying in bed comfortably Constitutional: well developed, well nourished and comfortable; no acute distress and not ill appearing Eyes: PERRL, conjunctivae normal, anicteric sclerae ENMT: external ear and nose normal, oropharynx normal Neck: trachea midline, no thyromegaly Respiratory: no respiratory distress Auscultation: lungs clear to auscultation bilaterally Cardiovascular: Rate/Rhythm: regular rate and regular rhythm Heart Sounds: no murmur Chest (Breasts): Breast: + abnormal inspection of breast Gastrointestinal (Abdomen): Inspection/Auscultation: + abdomen distended and normal bowel sounds Percussion/Palpation: abdomen soft; abdomen nontender Musculoskeletal: No acute arthritis in any joints Neurologic: moves all extremities, awake and + confused (Remains pleasantly confused without any agitation or behavioral problems); no focal motor deficits Psychiatric: Affect: + depressed affect Mood: + depressed mood Insight: + limited insight Judgement: + poor judgement Lymphatic: no cervical or axillary lymphadenopathy Results & Data Results & Data ([facility]) Vital Signs (Past 12 Hours) Vital Signs Temp Pulse Resp BP Pulse Ox 03/17/20 12:08 91/64 L 03/17/20 07:24 36.5 C 89 16 96/63 L 98 Medications Administered Current Inpatient Medications Acetaminophen (Tylenol) 325 mg PO Q6H PRN PRN Reason: Mild Pain Stop: 04/12/20 00:16 Digoxin (Lanoxin) 0.125 mg PO MoWeFr@1600 [facility] Stop: 04/12/20 15:59 Last Admin: 03/15/20 16:48 Dose: 0.125 mg Documented by: Escitalopram Oxalate (Lexapro Tab) 5 mg PO HS [facility] Stop: 04/12/20 20:59 Last Admin: 03/16/20 20:00 Dose: 5 mg Documented by: Ipratropium [place] (Atrovent 0.02% 0.5mg/2.5ml) 0.5 mg INH Q4H PRN PRN Reason: Shortness Of Breath Or Wheezing Stop: 04/11/20 23:52 Last Admin: 03/14/20 06:04 Dose: 0.5 mg Documented by: Lactobacillus Acidophilus (Floranex) 4 tab PO DAILY [facility] Stop: 04/12/20 08:59 Last Admin: 03/17/20 09:23 Dose: 4 tab Documented by: Levalbuterol HCl (Xopenex 1.25mg/0.5ml Neb) 1.25 mg INH Q4H PRN PRN Reason: Shortness Of Breath Or Wheezing Stop: 04/11/20 23:52 Last Admin: 03/14/20 06:04 Dose: 1.25 mg Documented by: Magnesium Oxide (Mag-Ox) 400 mg PO HS [facility] Stop: 04/12/20 20:59 Last Admin: 03/16/20 20:00 Dose: 400 mg Documented by: Metoprolol Succinate (Toprol Xl) 12.5 mg PO QAM [facility] Stop: 04/12/20 08:59 Last Admin: 03/17/20 09:24 Dose: Not Given Documented by: Mirtazapine (Remeron) 15 mg PO HS [facility] Stop: 04/12/20 20:59 Last Admin: 03/16/20 20:00 Dose: 15 mg Documented by: Nitroglycerin (Nitrostat) 0.4 mg SL UD PRN PRN Reason: Chest Pain Stop: 04/11/20 23:52 Olanzapine (Zyprexa) 2.5 mg IM Q4H PRN PRN Reason: Anxiety/Agitation Stop: 04/11/20 23:52 Pantoprazole Sodium (Protonix) 40 mg PO DAILY [facility] Stop: 04/12/20 08:59 Last Admin: 03/17/20 09:24 Dose: 40 mg Documented by: Potassium Chloride (Klor-Con M20) 40 meq PO QAM [facility] Stop: 04/12/20 08:59 Last Admin: 03/17/20 09:24 Dose: 40 meq Documented by: Spironolactone (Aldactone) 50 mg PO BID17 [facility] Stop: 04/12/20 08:59 Last Admin: 03/17/20 09:24 Dose: 50 mg Documented by: Tamsulosin HCl (Flomax) 0.4 mg PO DAILY [facility] Stop: 04/12/20 08:59 Last Admin: 03/17/20 09:23 Dose: 0.4 mg Documented by: Torsemide (Demadex) 80 mg PO BID@0900,1200 [facility] Stop: 04/12/20 08:59 Last Admin: 03/17/20 12:09 Dose: Not Given Documented by: Zolpidem Tartrate (Ambien) 5 mg PO HS PRN PRN Reason: Sleep Stop: 04/12/20 21:57 Last Admin: 03/13/20 22:22 Dose: 5 mg Documented by:
[2020-03-17 13:04] LABS: Basophils # (auto) 0.02 K/uL (0-0.2); Basophils % (auto) 0.4 %; Eosinophils # (auto) 0.05 K/uL (0-0.5); Eosinophils % (auto) 0.9 %; Hematocrit (blood only) 48.9 % (42-52); Hemoglobin 16.3 g/dL (14.0-18.0); Immature Granulocytes # (auto) 0.02 K/uL (0.00-0.02); Immature Granulocytes % (auto) 0.4 %; Lymphocytes # (auto) 1.47 K/uL (1.2-3.4); Lymphocytes % (auto) 26.1 %; Mean Corpuscular Hemoglobin 31.7 pg (25-34); Mean Corpuscular Hgb Conc 33.3 g/dL (32-36); Mean Platelet Volume 10.2 fL (7.4-10.4); Monocytes % (auto) 7.1 %; Neutrophils # (auto) 3.68 K/uL (1.4-6.5); Neutrophils % (auto) 65.1 %; Platelet Count 126 K/uL (130-400); RDW Coefficient of Variation 16.1 % (11.5-14.5); RDW Standard Deviation 55.8 fL (36.4-46.3); Red Blood Count 5.15 M/uL (4.7-6.1); White Blood Count 5.64 K/uL (4.8-10.8)
[2020-03-17 13:12] LABS: INR 1.4 (0.9-1.1); Prothrombin Time 14.1 Seconds (9.0-12.0)
[2020-03-17 13:29] LABS: Albumin Level 3.1 gm/dl (3.4-5.0); Calcium 9.2 mg/dl (8.5-10.1); Creatinine Clr Calc Pharmacy 72.8 ml/min; Est GFR (African American) 81.9; Est GFR (Non-African American) 70.6; Potassium 4.5 mmol/L (3.5-5.1)
[2020-03-17 13:32] LABS: Albumin Globulin Ratio 0.7 (0.9-2); Bilirubin,Total 2.8 mg/dl (0.2-1); Globulin 4.5 gm/dl (2.5-4.0); Total Protein 7.6 gm/dl (6.4-8.2)
[2020-03-17] MEDS: ESCITALOPRAM OXALATE 10 MG TAB PO SCH (21:52)
[2020-03-17] MEDS: MIRTAZAPINE TAB 15 MG TAB PO SCH (21:52)
[2020-03-17] MEDS: MAGNESIUM OXIDE 400 MG TAB PO SCH (21:53)
[2020-03-18] MEDS: TAMSULOSIN HCL 0.4 MG CAP PO SCH (07:42)
[2020-03-18] MEDS: METOPROLOL SUCC 25MG EXT REL TAB PO SCH (07:42)
[2020-03-18] MEDS: LACTOBACILLUS ACIDOPHILUS (FLORANEX) TAB PO SCH (07:43)
[2020-03-18] MEDS: PANTOprazole 40 MG TAB PO SCH (07:43)
[2020-03-18] MEDS: SPIRONOLACTONE 25 MG TAB PO SCH ×2 (07:44→16:43)
[2020-03-18] MEDS: POTASSIUM CHLORIDE 20 MEQ TABCR PO SCH (07:44)
[2020-03-18] MEDS: TORSEMIDE 20 MG TAB PO SCH ×2 (07:45→12:02)
--- NOTE | 2020-03-18 14:06 | Hospitalist Progress Note ---
Date of Service March 18, 2020 Assessment & Plan (1) Afib: Mild elevation in rate secondary to agitation, INR therapeutic Denies any cardiac symptoms Heart rate remains controlled Acute frontotemporal dementia Memory impairment/behavioral changes in last 2 months Requiring one-to-one sitter now Appreciate neurology input and recommendation Has been getting occasional confusion Remains confused without any behavioral problem No new issue Awaiting placement Mood disorder with possible history of suicidality Appreciate psychiatric input and recommendation Will adjust medication accordingly Denies any suicidal and/or homicidal ideation Remains stable as of this morning and not being aggressive Not been receptive to current recommendation of going to skilled care facility Wants to go home this morning-explained the process of discharge to him this morning in detail No agitation or aggressive behavior Discussed with the who cannot take care of him at home The patient will need to be placed on discharge Elevated TSH, possible hypothyroidism Mild elevation of TSH noted from time to time on review of outpatient blood work Chronic respiratory failure secondary to COPD/pulmonary fibrosis on home O2, pulmonary status at baseline Chronic systolic right ventricular CHF Right-sided heart failure/cor pulmonale as per records (EF 55%, 2018), some congestion on CXR Cirrhosis/portal hypertension as per records, no vertical position Past alcohol use Hypertension, stable Ongoing tobacco abuse DVT prophylaxis. Coumadin INR goal between 2 and 3 Full code as per . Patient's requesting updates for providers. Ms. Kenisha Flanagan, contact #[phone]. We will update his this afternoon Awaiting placement Admission and Anticipated Discharge Date Admission Date: March 13, 2020 Subjective The patient was seen and examined in telemetry unit Remains pleasantly confused but denies any acute symptoms No chest pain, palpitation, no shortness of breath, no abdominal pain, nausea and or vomiting 03/15/2020 Patient was seen and examined in medical floor He remains confused but not showing any aggressive behavior Denies any significant symptoms He wants to go home but he will need to go to rehab for short-term 03/16/20 The patient was seen and examined in the medical floor He remains stable and wants to go home He was explained repeatedly about discharge from the hospital and wired will be going We will update his 03/17/2020 The patient was seen and examined in the medical floor He remains stable and denies any complaints He has been waiting to be placed 03/18/2020 Patient was seen and examined in medical floor He remains stable and denies any symptoms He has been waiting to be placed Review of Systems Review of Systems: All systems reviewed and are unremarkable except as noted below Neurologic: + confusion (Pleasantly confused) and + memory loss Physical Exam Physical Exam: Lying in bed comfortably Constitutional: well developed, well nourished and comfortable; no acute distress and not ill appearing Eyes: PERRL, conjunctivae normal, anicteric sclerae ENMT: external ear and nose normal, oropharynx normal Neck: trachea midline, no thyromegaly Respiratory: no respiratory distress Auscultation: lungs clear to auscultation bilaterally Cardiovascular: Rate/Rhythm: regular rate and regular rhythm Heart Sounds: no murmur Chest (Breasts): Breast: + abnormal inspection of breast Gastrointestinal (Abdomen): Inspection/Auscultation: + abdomen distended and normal bowel sounds Percussion/Palpation: abdomen soft; abdomen nontender Neurologic: moves all extremities, awake and + confused (Remains pleasantly confused without any agitation or behavioral problems); no focal motor deficits Psychiatric: Affect: + depressed affect Mood: + depressed mood Insight: + limited insight Judgement: + poor judgement Lymphatic: no cervical or axillary lymphadenopathy Results & Data Results & Data ([facility]) Vital Signs (Past 12 Hours) Vital Signs Temp Pulse Resp BP Pulse Ox 03/18/20 11:28 87 L 03/18/20 07:04 36.4 C L 84 18 108/73 90 Medications Administered Current Inpatient Medications Acetaminophen (Tylenol) 325 mg PO Q6H PRN PRN Reason: Mild Pain Stop: 04/12/20 00:16 Digoxin (Lanoxin) 0.125 mg PO MoWeFr@1600 [facility] Stop: 04/12/20 15:59 Last Admin: 03/15/20 16:48 Dose: 0.125 mg Documented by: Escitalopram Oxalate (Lexapro Tab) 5 mg PO HS [facility] Stop: 04/12/20 20:59 Last Admin: 03/17/20 21:52 Dose: 5 mg Documented by: Ipratropium [place] (Atrovent 0.02% 0.5mg/2.5ml) 0.5 mg INH Q4H PRN PRN Reason: Shortness Of Breath Or Wheezing Stop: 04/11/20 23:52 Last Admin: 03/14/20 06:04 Dose: 0.5 mg Documented by: Lactobacillus Acidophilus (Floranex) 4 tab PO DAILY [facility] Stop: 04/12/20 08:59 Last Admin: 03/18/20 07:43 Dose: 4 tab Documented by: Levalbuterol HCl (Xopenex 1.25mg/0.5ml Neb) 1.25 mg INH Q4H PRN PRN Reason: Shortness Of Breath Or Wheezing Stop: 04/11/20 23:52 Last Admin: 03/14/20 06:04 Dose: 1.25 mg Documented by: Magnesium Oxide (Mag-Ox) 400 mg PO HS [facility] Stop: 04/12/20 20:59 Last Admin: 03/17/20 21:53 Dose: 400 mg Documented by: Metoprolol Succinate (Toprol Xl) 12.5 mg PO QAM [facility] Stop: 04/12/20 08:59 Last Admin: 03/18/20 07:42 Dose: 12.5 mg Documented by: Mirtazapine (Remeron) 15 mg PO [facility] Stop: 04/12/20 20:59 Last Admin: 03/17/20 21:52 Dose: 15 mg Documented by: Nitroglycerin (Nitrostat) 0.4 mg SL UD PRN PRN Reason: Chest Pain Stop: 04/11/20 23:52 Olanzapine (Zyprexa) 2.5 mg IM Q4H PRN PRN Reason: Anxiety/Agitation Stop: 04/11/20 23:52 Pantoprazole Sodium (Protonix) 40 mg PO DAILY [facility] Stop: 04/12/20 08:59 Last Admin: 03/18/20 07:43 Dose: 40 mg Documented by: Potassium Chloride (Klor-Con M20) 40 meq PO QAM [facility] Stop: 04/12/20 08:59 Last Admin: 03/18/20 07:44 Dose: 40 meq Documented by: Spironolactone (Aldactone) 50 mg PO BID17 [facility] Stop: 04/12/20 08:59 Last Admin: 03/18/20 07:44 Dose: 50 mg Documented by: Tamsulosin HCl (Flomax) 0.4 mg PO DAILY [facility] Stop: 04/12/20 08:59 Last Admin: 03/18/20 07:42 Dose: 0.4 mg Documented by: Torsemide (Demadex) 80 mg PO BID@0900,1200 [facility] Stop: 04/12/20 08:59 Last Admin: 03/18/20 12:02 Dose: 80 mg Documented by: Zolpidem Tartrate (Ambien) 5 mg PO HS PRN PRN Reason: Sleep Stop: 04/12/20 21:57 Last Admin: 03/13/20 22:22 Dose: 5 mg Documented by:
[2020-03-18] MEDS: DIGOXIN 0.125 MG TAB PO SCH (16:43)
[2020-03-18] MEDS: ESCITALOPRAM OXALATE 10 MG TAB PO SCH ×2 (21:54→22:18)
[2020-03-18] MEDS: MIRTAZAPINE TAB 15 MG TAB PO SCH (21:54)
[2020-03-18] MEDS: MAGNESIUM OXIDE 400 MG TAB PO SCH (21:54)
[2020-03-19] MEDS: METOPROLOL SUCC 25MG EXT REL TAB PO SCH (07:33)
[2020-03-19] MEDS: LACTOBACILLUS ACIDOPHILUS (FLORANEX) TAB PO SCH (07:34)
[2020-03-19] MEDS: TORSEMIDE 20 MG TAB PO SCH ×2 (07:34→11:38)
[2020-03-19] MEDS: POTASSIUM CHLORIDE 20 MEQ TABCR PO SCH (07:34)
[2020-03-19] MEDS: PANTOprazole 40 MG TAB PO SCH (07:34)
[2020-03-19] MEDS: TAMSULOSIN HCL 0.4 MG CAP PO SCH (07:34)
[2020-03-19] MEDS: SPIRONOLACTONE 25 MG TAB PO SCH ×2 (07:34→17:22)
--- NOTE | 2020-03-19 13:06 | Hospitalist Progress Note ---
Date of Service March 19, 2020 Assessment & Plan (1) Afib: Mild elevation in rate secondary to agitation, INR therapeutic Denies any cardiac symptoms Heart rate remains controlled Acute frontotemporal dementia Memory impairment/behavioral changes in last 2 months Requiring one-to-one sitter now Appreciate neurology input and recommendation Has been getting occasional confusion Remains confused without any behavioral problem Remains stable and awaiting placement Mood disorder with possible history of suicidality Appreciate psychiatric input and recommendation Will adjust medication accordingly Denies any suicidal and/or homicidal ideation Remains stable as of this morning and not being aggressive Not been receptive to current recommendation of going to skilled care facility Wants to go home this morning-explained the process of discharge to him this morning in detail No agitation or aggressive behavior Discussed with the who cannot take care of him at home-discussed again today 03/19/20 The patient will need to be placed on discharge Cirrhosis with portal hypertension Remains reasonably stable Bowel has been moving normally Bilirubin is elevated at more than 4 No significant ascites and/or Encephalopathy Elevated TSH, possible hypothyroidism Mild elevation of TSH noted from time to time on review of outpatient blood work Chronic respiratory failure secondary to COPD/pulmonary fibrosis on home O2, pulmonary status at baseline Chronic systolic right ventricular CHF Right-sided heart failure/cor pulmonale as per records (EF 55%, 2019), some congestion on CXR Cirrhosis/portal hypertension as per records, no vertical position Past alcohol use Hypertension, stable Ongoing tobacco abuse DVT prophylaxis. Coumadin INR goal between 2 and 3 Full code as per . Patient's requesting updates for providers. Ms. Kenisha Flanagan, contact #[phone]. Discussed with the in detailed. Admission and Anticipated Discharge Date Admission Date: March 13, 2020 Subjective The patient was seen and examined in telemetry unit Remains pleasantly confused but denies any acute symptoms No chest pain, palpitation, no shortness of breath, no abdominal pain, nausea and or vomiting 03/15/2020 Patient was seen and examined in medical floor He remains confused but not showing any aggressive behavior Denies any significant symptoms He wants to go home but he will need to go to rehab for short-term 03/16/20 The patient was seen and examined in the medical floor He remains stable and wants to go home He was explained repeatedly about discharge from the hospital and wired will be going We will update his 03/17/2020 The patient was seen and examined in the medical floor He remains stable and denies any complaints He has been waiting to be placed 03/18/2020 Patient was seen and examined in medical floor He remains stable and denies any symptoms He has been waiting to be placed 03/19/2020 The patient was seen and examined in medical floor Remains confused but otherwise no acute distress He has been eating and drinking normally and no agitation and/or aggressiveness Review of Systems Review of Systems: All systems reviewed and are unremarkable except as noted below Neurologic: + confusion (Pleasantly confused) and + memory loss Physical Exam Physical Exam: Lying in bed comfortably Constitutional: well developed, well nourished and comfortable; no acute distress and not ill appearing Eyes: + scleral abnormality (Jaundice) ENMT: external ear and nose normal, oropharynx normal Neck: trachea midline, no thyromegaly Respiratory: no respiratory distress Auscultation: lungs clear to auscultation bilaterally Cardiovascular: Rate/Rhythm: regular rate and regular rhythm Heart Sounds: no murmur Extremities: + edema (Trace edema bilaterally) Chest (Breasts): Breast: + abnormal inspection of breast Additional Comments: Has bilateral gynecomastia Gastrointestinal (Abdomen): Inspection/Auscultation: + abdomen distended (Clinically minimal ascites) and normal bowel sounds Percussion/Palpation: abdomen soft; abdomen nontender Musculoskeletal: No acute arthritis in any joint Neurologic: moves all extremities, awake and + confused (Remains pleasantly confused without any agitation or behavioral problems); no focal motor deficits Pleasantly confused Psychiatric: Affect: + depressed affect Mood: + depressed mood Insight: + limited insight Judgement: + poor judgement Lymphatic: no cervical or axillary lymphadenopathy Results & Data Results & Data ([facility]) Vital Signs (Past 12 Hours) Vital Signs Temp Pulse Resp BP Pulse Ox 03/19/20 07:37 36.7 C 96 H 20 85/59 L 90
[2020-03-19 13:26] LABS: Basophils # (auto) 0.02 K/uL (0-0.2); Basophils % (auto) 0.3 %; Eosinophils # (auto) 0.03 K/uL (0-0.5); Eosinophils % (auto) 0.5 %; Hematocrit (blood only) 50.2 % (42-52); Hemoglobin 16.9 g/dL (14.0-18.0); Immature Granulocytes # (auto) 0.02 K/uL (0.00-0.02); Immature Granulocytes % (auto) 0.3 %; Lymphocytes # (auto) 1.62 K/uL (1.2-3.4); Lymphocytes % (auto) 24.7 %; Mean Corpuscular Hemoglobin 32.2 pg (25-34); Mean Corpuscular Hgb Conc 33.7 g/dL (32-36); Mean Corpuscular Volume 95.6 fL (80-100); Mean Platelet Volume 10.1 fL (7.4-10.4); Monocytes # (auto) 0.42 K/uL (0.11-0.59); Monocytes % (auto) 6.4 %; Neutrophils # (auto) 4.45 K/uL (1.4-6.5); Neutrophils % (auto) 67.8 %; Platelet Count 126 K/uL (130-400); RDW Coefficient of Variation 16.1 % (11.5-14.5); RDW Standard Deviation 54.9 fL (36.4-46.3); Red Blood Count 5.25 M/uL (4.7-6.1); White Blood Count 6.56 K/uL (4.8-10.8)
[2020-03-19 13:51] LABS: Albumin Level 3.2 gm/dl (3.4-5.0); BUN Creatinine Ratio 15.3 (10-20); Calcium 9.8 mg/dl (8.5-10.1); Creatinine Clr Calc Pharmacy 49.1 ml/min; Est GFR (African American) 62.5; Est GFR (Non-African American) 53.9; Potassium 4.7 mmol/L (3.5-5.1)
[2020-03-19 13:53] LABS: Albumin Globulin Ratio 0.6 (0.9-2); Bilirubin,Total 2.7 mg/dl (0.2-1); Total Protein 8.2 gm/dl (6.4-8.2)
[2020-03-19 13:59] LABS: INR 1.3 (0.9-1.1); Prothrombin Time 13.6 Seconds (9.0-12.0)
[2020-03-19] MEDS ORDERED: WARFARIN SOD 7.5 MG TAB PO SCH (17:00)
[2020-03-19] MEDS ORDERED: WARFARIN SOD 5 MG TAB PO SCH (17:00)
[2020-03-19] MEDS ORDERED: WARFARIN SOD 5 MG TAB PO ONE (17:00)
[2020-03-19] MEDS: ESCITALOPRAM OXALATE 10 MG TAB PO SCH (20:28)
[2020-03-19] MEDS: MAGNESIUM OXIDE 400 MG TAB PO SCH (20:29)
[2020-03-19] MEDS: MIRTAZAPINE TAB 15 MG TAB PO SCH (20:30)
[2020-03-20 06:11] LABS: INR 1.3 (0.9-1.1); Prothrombin Time 13.9 Seconds (9.0-12.0)
[2020-03-20] MEDS: TORSEMIDE 20 MG TAB PO SCH ×2 (07:46→12:22)
[2020-03-20] MEDS: SPIRONOLACTONE 25 MG TAB PO SCH ×2 (07:46→16:44)
[2020-03-20] MEDS: POTASSIUM CHLORIDE 20 MEQ TABCR PO SCH ×2 (07:47→07:50)
[2020-03-20] MEDS: PANTOprazole 40 MG TAB PO SCH (07:47)
[2020-03-20] MEDS: LACTOBACILLUS ACIDOPHILUS (FLORANEX) TAB PO SCH (07:47)
[2020-03-20] MEDS: METOPROLOL SUCC 25MG EXT REL TAB PO SCH (07:47)
[2020-03-20] MEDS: TAMSULOSIN HCL 0.4 MG CAP PO SCH (12:22)
[2020-03-20] MEDS ORDERED: OLANZAPINE 2.5 MG TAB PO PRN (16:05)
[2020-03-20] MEDS: WARFARIN SOD 5 MG TAB PO SCH (16:43)
[2020-03-20] MEDS: DIGOXIN 0.125 MG TAB PO SCH (16:44)
--- NOTE | 2020-03-20 18:30 | Hospitalist Progress Note ---
Date of Service March 20, 2020 Assessment & Plan (1) Afib: Mild elevation in rate secondary to agitation, INR therapeutic Denies any cardiac symptoms continue Digoxin, Metoprolol INR 1.3 , continue coumadin check INR tomorrow Acute frontotemporal dementia Memory impairment/behavioral changes in last 2 months Requiring one-to-one sitter now Neurologist consulted Remains stable and awaiting placement Mood disorder with possible history of suicidality Psychiatry consulted] Denies any suicidal and/or homicidal ideation required Zyprexa po today Cirrhosis with portal hypertension Remains reasonably stable Bowel has been moving normally Bilirubin is elevated at more than 4 No significant ascites and/or Encephalopathy Elevated TSH, possible hypothyroidism Mild elevation of TSH noted from time to time on review of outpatient blood work Chronic respiratory failure secondary to COPD/pulmonary fibrosis on home O2, pulmonary status at baseline Chronic systolic right ventricular CHF Right-sided heart failure/cor pulmonale as per records (EF 55%, 2019), some congestion on CXR Cirrhosis/portal hypertension as per records, no vertical position Past alcohol use Hypertension, stable Ongoing tobacco abuse DVT prophylaxis. Coumadin INR goal between 2 and 3 Full code as per . Admission and Anticipated Discharge Date Admission Date: March 13, 2020 Subjective ff up for dementia with behavioral disturbance seen resting in bed, comfortable oriented x 2, mostly confused denies headache, chest pain, dyspnea, palpitations states he is eating fine no other symptoms Review of Systems Review of Systems: All systems reviewed & are unremarkable except as noted in HPI & below Physical Exam Physical Exam: General- oriented x 2, not in distress, speaks in sentences with no effort or accessory muscle use Eyes- anicteric Neck- no JVD Lungs- clear breath sounds bilaterally, no rales/wheezes Heart- normal rate, regular rhythm; no murmurs Abdomen- normal bowel sounds, nondistended, soft, nontender Extremities- no pretibial edema, no calf tenderness Neuro- alert, oriented x 3; no gross focal neurologic deficits Skin- warm & dry Results & Data Results & Data ([facility]) Vital Signs (Past 12 Hours) Vital Signs Temp Pulse Pulse Resp BP Pulse Ox 03/20/20 16:44 79 03/20/20 15:00 36.4 C L 79 20 100/68 91 03/20/20 12:21 73 96/69 L 03/20/20 07:19 36.4 C L 90 20 97/66 L 90 Laboratory Results Laboratory Results - last 24 hr 03/20/20 05:29 PT 13.9 H INR 1.3 H
[2020-03-20] MEDS: ESCITALOPRAM OXALATE 10 MG TAB PO SCH (19:16)
[2020-03-20] MEDS: MAGNESIUM OXIDE 400 MG TAB PO SCH (19:18)
[2020-03-20] MEDS: MIRTAZAPINE TAB 15 MG TAB PO SCH (19:18)
[2020-03-20] MEDS: ZOLPIDEM TARTRATE 5 MG TAB PO PRN (21:28)
[2020-03-21] MEDS: METOPROLOL SUCC 25MG EXT REL TAB PO SCH (07:48)
[2020-03-21] MEDS: TORSEMIDE 20 MG TAB PO SCH ×2 (07:48→12:12)
[2020-03-21] MEDS: SPIRONOLACTONE 25 MG TAB PO SCH ×2 (07:49→16:11)
[2020-03-21] MEDS: PANTOprazole 40 MG TAB PO SCH (07:49)
[2020-03-21] MEDS: LACTOBACILLUS ACIDOPHILUS (FLORANEX) TAB PO SCH (07:49)
[2020-03-21] MEDS: POTASSIUM CHLORIDE 20 MEQ TABCR PO SCH (07:49)
[2020-03-21] MEDS: TAMSULOSIN HCL 0.4 MG CAP PO SCH (07:49)
[2020-03-21 08:27] LABS: INR 1.3 (0.9-1.1); Prothrombin Time 13.7 Seconds (9.0-12.0)
[2020-03-21 08:39] LABS: BUN Creatinine Ratio 18.6 (10-20); Creatinine Clr Calc Pharmacy 47.6 ml/min; Est GFR (African American) 58.8; Est GFR (Non-African American) 50.7; Potassium 4.7 mmol/L (3.5-5.1)
[2020-03-21] MEDS: OLANZAPINE 2.5 MG TAB PO PRN (13:02)
[2020-03-21] MEDS: WARFARIN SOD 5 MG TAB PO SCH (16:10)
--- NOTE | 2020-03-21 18:02 | Hospitalist Progress Note ---
Date of Service March 21, 2020 Assessment & Plan (1) Afib: 69-year-old male with history of dementia, mood disorder, liver cirrhosis with pulmonary hypertension, respiratory failure, COPD, atrial fibrillation... Acute frontotemporal dementia with behavioral disturbance Memory impairment/behavioral changes in last 2 months Neurologist consulted awaiting placement PRN Zyprexa for combativeness, agitation Mood disorder with possible history of suicidality Psychiatry consulted Denies any suicidal and/or homicidal ideation Atrial fibrillation Mild elevation in rate secondary to agitation Denies any cardiac symptoms continue Digoxin, Metoprolol INR 1.3 , continue coumadin, additional 2.5mg po daily ordered Will be bridged with Lovenox 70 mg subcutaneous 12 hours in light of history of DVT and PE as well check INR tomorrow Cirrhosis with portal hypertension stable overall Bilirubin is elevated at more than 4 No significant ascites and/or Encephalopathy Chronic respiratory failure secondary to COPD/pulmonary fibrosis on home O2, pulmonary status at baseline Chronic systolic right ventricular CHF Right-sided heart failure/cor pulmonale as per records (EF 55%, 2019), some congestion on CXR Cirrhosis/portal hypertension as per records, no vertical position Past alcohol use History of DVT and PE On chronic Coumadin INR subtherapeutic, will start Lovenox bridge, INR checks daily and titrate Coumadin accordingly Elevated TSH, possible hypothyroidism Mild elevation of TSH noted from time to time on review of outpatient blood work Hypertension, stable Ongoing tobacco abuse DVT prophylaxis. Coumadin with Lovenox bridge until INR therapeutic Full code as per . Try to call patient's Kenisha over the phone for update No answer at this time Left a voicemail requesting for call back, awaiting callback Admission and Anticipated Discharge Date Admission Date: March 13, 2020 Subjective Follow-up for dementia with behavioral disturbances Required 1 dose of Zyprexa p.o. yesterday Today patient seen sleeping but easily awakened He is oriented x2, but mostly confused Pleasant, calm, cooperative Denies symptoms Review of Systems Review of Systems: All systems reviewed & are unremarkable except as noted in HPI & below Physical Exam Physical Exam: General- oriented x 2, not in distress, speaks in sentences with no effort or accessory muscle use Eyes- anicteric Neck- no JVD Lungs- clear breath sounds bilaterally Heart- normal rate, regular rhythm; no murmurs Abdomen- normal bowel sounds, nondistended, soft, nontender Extremities- no pretibial edema, no calf tenderness Neuro- alert, oriented x 2; no gross focal neurologic deficits Skin- warm & dry Results & Data Results & Data ([facility]) Vital Signs (Past 12 Hours) Vital Signs Temp Pulse Resp BP Pulse Ox 03/21/20 07:44 36.4 C L 86 18 100/68 90
[2020-03-21] MEDS ORDERED: WARFARIN SOD 2.5 MG TAB PO STA (18:05)
[2020-03-21] MEDS: ENOXAPARIN 80 MG/0.8 ML SYR SQ SCH (20:06)
[2020-03-21] MEDS: MIRTAZAPINE TAB 15 MG TAB PO SCH (20:07)
[2020-03-21] MEDS: MAGNESIUM OXIDE 400 MG TAB PO SCH (20:07)
[2020-03-21] MEDS: ESCITALOPRAM OXALATE 10 MG TAB PO SCH (20:09)
[2020-03-22 07:29] LABS: INR 1.5 (0.9-1.1); Prothrombin Time 15.1 Seconds (9.0-12.0)
[2020-03-22] MEDS: ENOXAPARIN 80 MG/0.8 ML SYR SQ SCH ×2 (08:23→21:02)
[2020-03-22] MEDS: LACTOBACILLUS ACIDOPHILUS (FLORANEX) TAB PO SCH (08:24)
[2020-03-22] MEDS: TAMSULOSIN HCL 0.4 MG CAP PO SCH (08:25)
[2020-03-22] MEDS: PANTOprazole 40 MG TAB PO SCH (08:25)
[2020-03-22] MEDS: POTASSIUM CHLORIDE 20 MEQ TABCR PO SCH (08:25)
[2020-03-22] MEDS: METOPROLOL SUCC 25MG EXT REL TAB PO SCH (08:25)
[2020-03-22] MEDS: TORSEMIDE 20 MG TAB PO SCH ×3 (08:26→11:41)
[2020-03-22] MEDS: SPIRONOLACTONE 25 MG TAB PO SCH ×2 (08:26→18:10)
[2020-03-22] MEDS: DIGOXIN 0.125 MG TAB PO SCH (15:31)
[2020-03-22] MEDS: WARFARIN SOD 5 MG TAB PO SCH (15:31)
[2020-03-22] MEDS ORDERED: WARFARIN SOD 2.5 MG TAB PO ONE (18:30)
--- NOTE | 2020-03-22 19:52 | Hospitalist Progress Note ---
Date of Service March 22, 2020 Assessment & Plan (1) Afib: 69-year-old male with history of dementia, mood disorder, liver cirrhosis with pulmonary hypertension, respiratory failure, COPD, atrial fibrillation... Acute frontotemporal dementia with behavioral disturbance Memory impairment/behavioral changes in last 2 months Neurologist consulted awaiting placement PRN Zyprexa for combativeness, agitation Stable overall, no new issues Mood disorder with possible history of suicidality Psychiatry consulted Denies any suicidal and/or homicidal ideation Atrial fibrillation Mild elevation in rate secondary to agitation Denies any cardiac symptoms continue Digoxin, Metoprolol INR 1.5, continue coumadin 7.5 mg today Continue bridging with Lovenox 70 mg subcutaneous every 12 hours check INR tomorrow Cirrhosis with portal hypertension stable overall Bilirubin is elevated at more than 4 No significant ascites and/or Encephalopathy Chronic respiratory failure secondary to COPD/pulmonary fibrosis on home O2, pulmonary status at baseline Chronic systolic right ventricular CHF Right-sided heart failure/cor pulmonale as per records (EF 55%, 2019), some congestion on CXR Cirrhosis/portal hypertension as per records, no vertical position Past alcohol use History of DVT and PE On chronic Coumadin INR subtherapeutic, continue Coumadin with Lovenox bridge Elevated TSH, possible hypothyroidism Mild elevation of TSH noted from time to time on review of outpatient blood work Hypertension, stable Ongoing tobacco abuse DVT prophylaxis. Coumadin with Lovenox bridge until INR therapeutic Full code as per . Admission and Anticipated Discharge Date Admission Date: March 13, 2020 Subjective Follow-up for dementia with behavioral disturbance Seen resting in bed, comfortable, watching TV, pleasant Calm and cooperative, oriented x2, mostly confused Denies any new symptoms, states he feels fine overall Review of Systems Review of Systems: All systems reviewed & are unremarkable except as noted in HPI & below Physical Exam Physical Exam: General- oriented x 2, not in distress, speaks in sentences with no effort or accessory muscle use Eyes- anicteric Neck- no JVD Lungs- clear BS bilaterally Heart- normal rate, regular rhythm; no murmurs Abdomen- normal bowel sounds, nondistended, soft, nontender Extremities- no pretibial edema, no calf tenderness Neuro- alert, oriented x2; mostly confused but no gross focal neurologic deficits Skin- warm & dry Results & Data Results & Data ([facility]) Vital Signs (Past 12 Hours) Vital Signs Temp Pulse Pulse Resp BP BP Pulse Ox 03/22/20 15:31 80 03/22/20 15:16 36.2 C L 81 16 97/66 L 91 03/22/20 11:40 101/65
[2020-03-22] MEDS: MIRTAZAPINE TAB 15 MG TAB PO SCH (20:59)
[2020-03-22] MEDS: ESCITALOPRAM OXALATE 10 MG TAB PO SCH (20:59)
[2020-03-22] MEDS: MAGNESIUM OXIDE 400 MG TAB PO SCH (21:01)
[2020-03-23 05:58] LABS: INR 1.6 (0.9-1.1); Prothrombin Time 16.6 Seconds (9.0-12.0)
[2020-03-23] MEDS: ENOXAPARIN 80 MG/0.8 ML SYR SQ SCH ×2 (09:00→20:19)
[2020-03-23] MEDS: POTASSIUM CHLORIDE 20 MEQ TABCR PO SCH (09:02)
[2020-03-23] MEDS: TAMSULOSIN HCL 0.4 MG CAP PO SCH (09:03)
[2020-03-23] MEDS: LACTOBACILLUS ACIDOPHILUS (FLORANEX) TAB PO SCH (09:03)
[2020-03-23] MEDS: SPIRONOLACTONE 25 MG TAB PO SCH ×2 (09:03→17:31)
[2020-03-23] MEDS: PANTOprazole 40 MG TAB PO SCH (09:03)
[2020-03-23] MEDS: TORSEMIDE 20 MG TAB PO SCH ×2 (09:04→12:48)
[2020-03-23] MEDS: METOPROLOL SUCC 25MG EXT REL TAB PO SCH ×2 (09:05→09:10)
[2020-03-23 09:49] LABS: Calcium 9.6 mg/dl (8.5-10.1); Creatinine Clr Calc Pharmacy 52.8 ml/min; Est GFR (African American) 66.7; Est GFR (Non-African American) 57.5; Potassium 4.9 mmol/L (3.5-5.1)
[2020-03-23] MEDS: WARFARIN SOD 7.5 MG TAB PO SCH (17:29)
--- NOTE | 2020-03-23 18:11 | Hospitalist Progress Note ---
Date of Service March 23, 2020 Assessment & Plan (1) Afib: 69-year-old male with history of dementia, mood disorder, liver cirrhosis with pulmonary hypertension, respiratory failure, COPD, atrial fibrillation... Acute frontotemporal dementia with behavioral disturbance Memory impairment/behavioral changes in last 2 months Neurologist consulted awaiting placement PRN Zyprexa for combativeness, agitation --Calm cooperative overall, has not received Zyprexa for 2 days now Mood disorder with possible history of suicidality Psychiatry consulted Denies any suicidal and/or homicidal ideation Atrial fibrillation Mild elevation in rate secondary to agitation Denies any cardiac symptoms continue Digoxin, Metoprolol INR 1.6, continue coumadin 7.5 mg today Continue bridging with Lovenox 70 mg subcutaneous every 12 hours check INR tomorrow Cirrhosis with portal hypertension stable overall Bilirubin is elevated at more than 4 No significant ascites and/or Encephalopathy Chronic respiratory failure secondary to COPD/pulmonary fibrosis on home O2, pulmonary status at baseline Chronic systolic right ventricular CHF Right-sided heart failure/cor pulmonale as per records (EF 55%, 2019) Cirrhosis/portal hypertension as per records Past alcohol use History of DVT and PE On chronic Coumadin INR subtherapeutic, continue Coumadin with Lovenox bridge Elevated TSH, possible hypothyroidism TSH 8 Free t4 normal Hypertension, stable Ongoing tobacco abuse DVT prophylaxis. Coumadin with Lovenox bridge until INR therapeutic Full code as per . Admission and Anticipated Discharge Date Admission Date: March 13, 2020 Subjective Follow-up for dementia with behavioral disturbance Seen resting in bedside chair, comfortable, not in distress Calm and cooperative, oriented to person and place States that he wants to go home, explained to patient about the need for rehab Denies shortness of breath, chest pain, palpitations, dizziness States he feels fine overall Review of Systems Review of Systems: All systems reviewed & are unremarkable except as noted in HPI & below Physical Exam Physical Exam: General- oriented x 2, not in distress, speaks in sentences with no effort or accessory muscle use Eyes- anicteric Neck- no JVD Lungs-clear BS, no crackles, no wheezing bilaterally Heart- normal rate, regular rhythm; no murmurs Abdomen- normal bowel sounds, nondistended, soft, nontender Extremities- mild pretibial edema- left lower leg, no calf tenderness Neuro- alert, oriented x 2; some confusion, no other gross focal neurologic deficits Skin- warm & dry Results & Data Results & Data ([facility]) Vital Signs (Past 12 Hours) Vital Signs Temp Pulse Resp BP BP Pulse Ox 03/23/20 15:30 36.3 C L 90 16 90/61 L 90 03/23/20 09:30 36.4 C L 84 18 104/65 94 Laboratory Results Laboratory Results - last 24 hr 03/23/20 03/23/20 05:22 05:22 PT 16.6 H INR 1.6 H Sodium 130 L Potassium 4.9 Chloride 90 L Carbon Dioxide 31 Anion Gap 8.0 BUN 28 H Creatinine 1.28 Est Cr Clr Drug Dosing 52.8 Est GFR ( Amer) 66.7 Est GFR (Non-Af Amer) 57.5 BUN/Creatinine Ratio 22.0 H Glucose 94 Calcium 9.6 Specimen Hemolysis
[2020-03-23] MEDS: MIRTAZAPINE TAB 15 MG TAB PO SCH (20:19)
[2020-03-23] MEDS: ESCITALOPRAM OXALATE 10 MG TAB PO SCH (20:19)
[2020-03-23] MEDS: MAGNESIUM OXIDE 400 MG TAB PO SCH (20:19)
[2020-03-24 05:36] LABS: Hemoglobin 17.7 g/dL (14.0-18.0); Mean Corpuscular Hemoglobin 32.1 pg (25-34); Mean Corpuscular Volume 94.2 fL (80-100); Mean Platelet Volume 10.3 fL (7.4-10.4); Platelet Count 127 K/uL (130-400); RDW Standard Deviation 54.5 fL (36.4-46.3); Red Blood Count 5.52 M/uL (4.7-6.1)
[2020-03-24 05:45] LABS: INR 1.7 (0.9-1.1); Prothrombin Time 17.7 Seconds (9.0-12.0)
[2020-03-24 06:17] LABS: Creatinine Clr Calc Pharmacy 48.7 ml/min; Est GFR (African American) 60.4; Est GFR (Non-African American) 52.1
[2020-03-24] MEDS: ENOXAPARIN 80 MG/0.8 ML SYR SQ SCH ×2 (09:47→20:06)
[2020-03-24] MEDS: LACTOBACILLUS ACIDOPHILUS (FLORANEX) TAB PO SCH (09:49)
[2020-03-24] MEDS: SPIRONOLACTONE 25 MG TAB PO SCH ×2 (09:49→16:19)
[2020-03-24] MEDS: POTASSIUM CHLORIDE 20 MEQ TABCR PO SCH (09:50)
[2020-03-24] MEDS: PANTOprazole 40 MG TAB PO SCH (09:50)
[2020-03-24] MEDS: TAMSULOSIN HCL 0.4 MG CAP PO SCH (09:51)
[2020-03-24] MEDS: TORSEMIDE 20 MG TAB PO SCH ×2 (09:51→12:48)
[2020-03-24] MEDS: METOPROLOL SUCC 25MG EXT REL TAB PO SCH (09:51)
[2020-03-24] MEDS: WARFARIN SOD 7.5 MG TAB PO SCH (16:18)
--- NOTE | 2020-03-24 19:25 | Hospitalist Progress Note ---
Date of Service March 24, 2020 Assessment & Plan (1) Afib: 69-year-old male with history of dementia, mood disorder, liver cirrhosis with pulmonary hypertension, respiratory failure, COPD, atrial fibrillation... Acute frontotemporal dementia with behavioral disturbance Memory impairment/behavioral changes in last 2 months Neurologist consulted awaiting placement PRN Zyprexa for combativeness, agitation --Calm cooperative overall, has not received Zyprexa for 2 days now stable Mood disorder with possible history of suicidality Psychiatry consulted Denies any suicidal and/or homicidal ideation Atrial fibrillation Mild elevation in rate secondary to agitation Denies any cardiac symptoms continue Digoxin, Metoprolol INR 1.7, continue Coumadin 7.5 mg today Continue bridging with Lovenox 70 mg subcutaneous every 12 hours check INR tomorrow Cirrhosis with portal hypertension stable overall Bilirubin is elevated at more than 4 No significant ascites and/or Encephalopathy Chronic respiratory failure secondary to COPD/pulmonary fibrosis on home O2, pulmonary status at baseline Chronic systolic right ventricular CHF Right-sided heart failure/cor pulmonale as per records (EF 55%, 2019) Cirrhosis/portal hypertension as per records Past alcohol use History of DVT and PE On chronic Coumadin INR subtherapeutic, continue Coumadin with Lovenox bridge Elevated TSH, possible hypothyroidism TSH 8 Free t4 normal Hypertension, stable Ongoing tobacco abuse DVT prophylaxis. Coumadin with Lovenox bridge until INR therapeutic Full code as per . Admission and Anticipated Discharge Date Admission Date: March 13, 2020 Subjective ff up for dementia with behavioral disturbance Seen resting in bedside chair, oriented x2, not in distress, in good spirits Denies any symptoms No shortness of breath, chest pain, palpitations, dizziness No other symptoms Review of Systems Review of Systems: All systems reviewed & are unremarkable except as noted in HPI & below Physical Exam Physical Exam: General- oriented x 2, not in distress, speaks in sentences with no effort or accessory muscle use mildly confused but calm, cooperative Eyes- anicteric Neck- no JVD Lungs- clear breath sounds BL Heart- normal rate, regular rhythm; no murmurs Abdomen- normal bowel sounds, nondistended, soft, nontender Extremities- mild LLE edema, no pretibial edema, no calf tenderness Neuro- alert, oriented x 2; no gross focal neurologic deficits Skin- warm & dry Results & Data Results & Data ([facility]) Vital Signs (Past 12 Hours) Vital Signs Temp Pulse Resp BP Pulse Ox 03/24/20 15:09 36.6 C 85 16 119/80 95
[2020-03-24] MEDS: MIRTAZAPINE TAB 15 MG TAB PO SCH (20:05)
[2020-03-24] MEDS: MAGNESIUM OXIDE 400 MG TAB PO SCH (20:06)
[2020-03-24] MEDS: ESCITALOPRAM OXALATE 10 MG TAB PO SCH (20:06)
[2020-03-25] MEDS: OLANZAPINE 2.5 MG TAB PO PRN ×2 (04:19→23:44)
[2020-03-25 05:16] LABS: INR 2.4 (0.9-1.1); Prothrombin Time 24.3 Seconds (9.0-12.0)
[2020-03-25] MEDS: ENOXAPARIN 80 MG/0.8 ML SYR SQ SCH (09:07)
[2020-03-25] MEDS: METOPROLOL SUCC 25MG EXT REL TAB PO SCH (09:12)
[2020-03-25] MEDS: SPIRONOLACTONE 25 MG TAB PO SCH ×2 (09:12→16:06)
[2020-03-25] MEDS: TAMSULOSIN HCL 0.4 MG CAP PO SCH (09:12)
[2020-03-25] MEDS: TORSEMIDE 20 MG TAB PO SCH ×2 (09:12→13:24)
[2020-03-25] MEDS: LACTOBACILLUS ACIDOPHILUS (FLORANEX) TAB PO SCH (09:13)
[2020-03-25] MEDS: PANTOprazole 40 MG TAB PO SCH (09:13)
[2020-03-25 13:15] LABS: BUN Creatinine Ratio 18.4 (10-20); Calcium 9.8 mg/dl (8.5-10.1); Est GFR (African American) 50.5; Est GFR (Non-African American) 43.6
[2020-03-25] MEDS: POTASSIUM CHLORIDE 20 MEQ TABCR PO SCH (13:42)
[2020-03-25] MEDS: WARFARIN SOD 7.5 MG TAB PO SCH (16:03)
[2020-03-25] MEDS: DIGOXIN 0.125 MG TAB PO SCH (16:03)
--- NOTE | 2020-03-25 19:07 | Hospitalist Progress Note ---
Date of Service March 25, 2020 Assessment & Plan (1) Afib: 69-year-old male with history of dementia, mood disorder, liver cirrhosis with pulmonary hypertension, respiratory failure, COPD, atrial fibrillation... Acute frontotemporal dementia with behavioral disturbance Memory impairment/behavioral changes in last 2 months Neurologist consulted awaiting placement PRN Zyprexa for combativeness, agitation --Calm cooperative overall, has not received Zyprexa for 2 days now --Remains stable Mood disorder with possible history of suicidality Psychiatry consulted Denies any suicidal and/or homicidal ideation Atrial fibrillation Mild elevation in rate secondary to agitation Denies any cardiac symptoms continue Digoxin, Metoprolol INR 2.4, discontinue Lovenox bridge, continue Coumadin 5 mg and 7.5 mg Cirrhosis with portal hypertension stable overall Bilirubin is elevated at more than 4 No significant ascites and/or Encephalopathy Chronic respiratory failure secondary to COPD/pulmonary fibrosis on home O2, pulmonary status at baseline Chronic systolic right ventricular CHF Right-sided heart failure/cor pulmonale as per records (EF 55%, 2019) Cirrhosis/portal hypertension as per records Past alcohol use History of DVT and PE On chronic Coumadin Management of Coumadin per above Elevated TSH, possible hypothyroidism TSH 8 Free t4 normal Hypertension, stable Ongoing tobacco abuse DVT prophylaxis. Coumadin, INR therapeutic Full code as per . [facility]position [facility] Admission and Anticipated Discharge Date Admission Date: March 13, 2020 Subjective Follow-up for dementia with behavioral disturbance Seen with GENO Dean at the bedside Patient is comfortable, resting in bed, in good spirits Oriented X2 States he feels fine overall Denies chest pain shortness of breath palpitations dizziness No bleeding Denies other symptoms Review of Systems Review of Systems: All systems reviewed & are unremarkable except as noted in HPI & below Physical Exam Physical Exam: General- oriented x 3, not in distress, speaks in sentences with no effort or accessory muscle use Eyes- anicteric Neck- no JVD Lungs- clear BS, no crackles, no wheezing bilaterally Heart- normal rate, irregularly irregular rhythm; no murmurs Abdomen- normal bowel sounds, nondistended, soft, nontender Extremities- no pretibial edema, no calf tenderness Neuro- alert, oriented x 3; some confusion, but no new gross focal neurologic deficits Skin- warm & dry Results & Data Results & Data ([facility]) Vital Signs (Past 12 Hours) Vital Signs Temp Pulse Pulse Resp BP Pulse Ox 03/25/20 16:52 36.4 C L 88 18 90/56 L 94 03/25/20 16:03 92 H 03/25/20 12:41 103/73 03/25/20 09:10 79 91/59 L Laboratory Results Laboratory Results - last 24 hr 03/25/20 03/25/20 03/25/20 04:49 04:54 13:18 PT 24.3 H INR 2.4 H Sodium 127 L Potassium 4.7 Chloride 89 L Carbon Dioxide 32 Anion Gap 6.0 BUN 30 H Creatinine 1.61 H Est Cr Clr Drug Dosing 42.0 Est GFR ( Amer) 50.5 Est GFR (Non-Af Amer) 43.6 BUN/Creatinine Ratio 18.4 Glucose 94 Calcium 9.8
[2020-03-25] MEDS: ESCITALOPRAM OXALATE 10 MG TAB PO SCH (20:37)
[2020-03-25] MEDS: MIRTAZAPINE TAB 15 MG TAB PO SCH (20:37)
[2020-03-25] MEDS: MAGNESIUM OXIDE 400 MG TAB PO SCH (22:12)
[2020-03-26 06:05] LABS: Hematocrit (blood only) 51.2 % (42-52); Hemoglobin 18.1 g/dL (14.0-18.0); Mean Corpuscular Hemoglobin 32.8 pg (25-34); Mean Corpuscular Hgb Conc 35.4 g/dL (32-36); Mean Corpuscular Volume 92.8 fL (80-100); Mean Platelet Volume 10.2 fL (7.4-10.4); Platelet Count 128 K/uL (130-400); RDW Coefficient of Variation 15.5 % (11.5-14.5); RDW Standard Deviation 52.8 fL (36.4-46.3); Red Blood Count 5.52 M/uL (4.7-6.1); White Blood Count 6.94 K/uL (4.8-10.8)
[2020-03-26 06:17] LABS: INR 3.2 (0.9-1.1); Prothrombin Time 31.3 Seconds (9.0-12.0)
[2020-03-26 06:39] LABS: BUN Creatinine Ratio 21.3 (10-20); Calcium 9.3 mg/dl (8.5-10.1); Creatinine Clr Calc Pharmacy 46.6 ml/min; Est GFR (African American) 57.3; Est GFR (Non-African American) 49.5; Magnesium 2.4 mg/dl (1.8-2.4); Potassium 4.2 mmol/L (3.5-5.1)
[2020-03-26] MEDS: TAMSULOSIN HCL 0.4 MG CAP PO SCH (09:23)
[2020-03-26] MEDS: METOPROLOL SUCC 25MG EXT REL TAB PO SCH (09:23)
[2020-03-26] MEDS: LACTOBACILLUS ACIDOPHILUS (FLORANEX) TAB PO SCH (09:24)
[2020-03-26] MEDS: PANTOprazole 40 MG TAB PO SCH (09:24)
[2020-03-26] MEDS ORDERED: WARFARIN SOD 5 MG TAB PO SCH (16:00)
[2020-03-26] MEDS: ESCITALOPRAM OXALATE 10 MG TAB PO SCH (20:22)
[2020-03-26] MEDS: MAGNESIUM OXIDE 400 MG TAB PO SCH (20:22)
[2020-03-26] MEDS: MIRTAZAPINE TAB 15 MG TAB PO SCH (20:22)
[2020-03-27] MEDS: OLANZAPINE 2.5 MG TAB PO PRN (00:48)
[2020-03-27 05:46] LABS: INR 3.2 (0.9-1.1); Prothrombin Time 31.9 Seconds (9.0-12.0)
[2020-03-27 06:07] LABS: BUN Creatinine Ratio 23.9 (10-20); Creatinine Clr Calc Pharmacy 66.3 ml/min; Est GFR (African American) 87.7; Est GFR (Non-African American) 75.7; Potassium 4.1 mmol/L (3.5-5.1)
--- NOTE | 2020-03-27 06:27 | Hospitalist Progress Note ---
Date of Service March 27, 2020 Assessment & Plan (1) Dementia: (1) Afib: 69-year-old male with history of dementia, mood disorder, liver cirrhosis with pulmonary hypertension, respiratory failure, COPD, atrial fibrillation... Acute frontotemporal dementia with behavioral disturbance Memory impairment/behavioral changes in last 2 months Neurologist consulted awaiting placement PRN Zyprexa for combativeness, agitation --Calm cooperative overall, has not received Zyprexa for 3 days now --Remains stable Mood disorder with possible history of suicidality Psychiatry consulted Denies any suicidal and/or homicidal ideation Atrial fibrillation Mild elevation in rate secondary to agitation Denies any cardiac symptoms continue Digoxin, Metoprolol INR 3.2, discontinued Lovenox bridge, hold usual Coumadin 5 mg and 7.5 mg INR daily Cirrhosis with portal hypertension stable overall Bilirubin is elevated at more than 4 No significant ascites and/or Encephalopathy Chronic respiratory failure secondary to COPD/pulmonary fibrosis on home O2, pulmonary status at baseline Chronic systolic right ventricular CHF Right-sided heart failure/cor pulmonale as per records (EF 55%, 2019) Cirrhosis/portal hypertension as per records Past alcohol use History of DVT and PE On chronic Coumadin Management of Coumadin per above Elevated TSH, possible hypothyroidism TSH 8 Free t4 normal Hypertension, stable Ongoing tobacco abuse DVT prophylaxis. Coumadin, INR supratherapeutic Full code as per . Disposition Awaiting acceptance to care home facility Admission and Anticipated Discharge Date Admission Date: March 13, 2020 Subjective ff up for dementia with behavioral disturbance seen resting in bed, alert, oriented x2 pleasantly confused but answers some questions appropriately no chest pain, dyspnea, palpitations, dizziness no other symptoms Review of Systems Review of Systems: All systems reviewed & are unremarkable except as noted in HPI & below Physical Exam Physical Exam: General- oriented x 1-2, not in distress, speaks in sentences with no effort or accessory muscle use Eyes- anicteric Neck- no JVD Lungs- clear BS BL Heart- normal rate, regular rhythm; no murmurs Abdomen- normal bowel sounds, nondistended, soft, nontender Extremities- mild lower ext edema, no calf tenderness Neuro- alert, oriented x 1-2; no new gross focal neurologic deficits Skin- warm & dry Results & Data Results & Data ([facility]) Vital Signs (Past 12 Hours) Vital Signs Temp Pulse Resp BP Pulse Ox 05/26/20 23:20 36.2 C L 86 18 92/53 L 90 Laboratory Results on other symptoms (1) Dementia Dementia behavioral disturbance: with behavioral disturbance Dementia type: unspecified type Qualified Code(s): F03.91 - Unspecified dementia with behavioral disturbance
[2020-03-27] MEDS: PANTOprazole 40 MG TAB PO SCH (08:57)
[2020-03-27] MEDS: TAMSULOSIN HCL 0.4 MG CAP PO SCH (08:58)
[2020-03-27] MEDS: LACTOBACILLUS ACIDOPHILUS (FLORANEX) TAB PO SCH (09:00)
[2020-03-27] MEDS: METOPROLOL SUCC 25MG EXT REL TAB PO SCH (09:03)
--- NOTE | 2020-03-27 09:45 | Hospitalist Progress Note ---
Date of Service March 27, 2020 Assessment & Plan (1) Dementia: Acute frontotemporal dementia with behavioral disturbance -Memory impairment/behavioral changes in last 2 months -neurology and psychiatry were consulted in context of behavior and for any possibility for suicidality or for mood disorder -current active medication list includes PRN Zyprexa if combativeness or agitation -behaviors have been reported to be better recently -1 to1 observation orders discontinued on 03/27/2020 -awaiting placement options Atrial fibrillation half-way current use of anticoagulants -continue Digoxin 0.125 mcg every Wed/Wed/Wednesday -recent metoprolol daily has been held because of low than ideal blood pressures -INR is 3.2 and currently coumadin has been held, monitor INR History of Deep Vein Thrombosis and History of Pulmonary Embolism -On chronic Coumadin anticoagulation Chronic systolic right ventricular Congestive Heart Failure Cirrhosis of liver with portal hypertension -Right-sided heart failure/cor pulmonale as per records (EF 55%, 2018) -Cirrhosis/portal hypertension as per records, past alcohol use -stable -is on fluid restriction -home dose torsemide and spirolactone were held because of renal function and blood pressures. continue to hold -history of hypertension is questionable Chronic respiratory failure secondary to COPD/pulmonary fibrosis -on home oxygen, continue as needed -Tobacco use history Elevated TSH -TSH 8, Free T4 is normal -will need Thyroid function tests to be repeated in the future to rule out hypothyroidism DVT prophylaxis: supratherapeutic INR of 3.2 Full code as per . Admission and Anticipated Discharge Date Admission Date: March 13, 2020 Subjective Patient awake and alert. cooperative on exam. he is aware that he is in hospital. he requests additional water but denies any other discomforts. wears nasal cannula oxygen. he denies problems with breathing. nurse held day time metoprolol because of low systolic blood pressure of 92. nurse reports he has not had bowel movement since 03/23/2020 Review of Systems Review of Systems: All systems reviewed & are unremarkable except as noted in Subjective Physical Exam Constitutional: cooperative Eyes: PERRL, conjunctivae normal, anicteric sclerae EOM intact bilaterally ENMT: external ear and nose normal, oropharynx normal Neck: normal visual inspection Respiratory: normal respiratory effort, lungs clear to auscultation Cardiovascular: Rate/Rhythm: regular rate Chest (Breasts): normal inspection/palpation of breasts (male gynecomastia) Gastrointestinal (Abdomen): Inspection/Auscultation: abdomen normal to inspection Percussion/Palpation: abdomen soft Musculoskeletal: Head/Neck/Chest: normocephalic Neurologic: PERRL, EOMI, accommodation nl, no face palsy, no dysarthria Psychiatric: Orientation: alert, oriented to person, oriented to place and cooperative Results & Data Results & Data ([facility]) Vital Signs (Past 12 Hours) Vital Signs Temp Pulse Pulse Resp BP Pulse Ox 03/27/20 09:02 89 92/50 L 03/27/20 07:37 36.4 C L 84 18 111/73 95 03/26/20 23:20 36.2 C L 86 18 92/53 L 90 (1) Dementia Dementia behavioral disturbance: with behavioral disturbance Dementia type: unspecified type Qualified Code(s): F03.91 - Unspecified dementia with behavioral disturbance
[2020-03-27] MEDS: SENNA 8.6 MG TAB PO SCH (12:09)
[2020-03-27] MEDS: POLYETHYLENE (MIRALAX) 17 GM PACK PO SCH ×2 (12:09→21:31)
[2020-03-27] MEDS: DIGOXIN 0.125 MG TAB PO SCH (16:12)
[2020-03-27] MEDS: MIRTAZAPINE TAB 15 MG TAB PO SCH (20:36)
[2020-03-27] MEDS: MAGNESIUM OXIDE 400 MG TAB PO SCH (20:36)
[2020-03-27] MEDS: ESCITALOPRAM OXALATE 10 MG TAB PO SCH (20:37)
[2020-03-28] MEDS: OLANZAPINE 2.5 MG TAB PO PRN (00:07)
[2020-03-28 06:51] LABS: INR 2.6 (0.9-1.1); Prothrombin Time 26.3 Seconds (9.0-12.0)
[2020-03-28 07:18] LABS: BUN Creatinine Ratio 18.6 (10-20); Calcium 9.7 mg/dl (8.5-10.1); Creatinine Clr Calc Pharmacy 63.2 ml/min; Est GFR (African American) 82.8; Est GFR (Non-African American) 71.5; Potassium 4.4 mmol/L (3.5-5.1)
--- NOTE | 2020-03-28 08:11 | Hospitalist Progress Note ---
Date of Service March 28, 2020 Assessment & Plan (1) Dementia: Acute frontotemporal dementia with behavioral disturbance -Memory impairment/behavioral changes in last 2 months -neurology and psychiatry were consulted in context of behavior and for any possibility for suicidality or for mood disorder -current active medication list includes PRN Zyprexa if combativeness or agitation -behaviors have been reported to be better recently -1 to1 observation orders discontinued on 03/27/2020 -awaiting placement options -03/28/2020: Patient seen and examined this AM and answer questions appropriately but under the impression that he would ultimately be able to go home. He was accurate in giving his 's number Kenisha ([phone]) and in my conversation with Kenisha, she has been on the phone with the patient and in trying to keep the patient calm and happy she has been telling him that she would pick him up from hospital eventually. I spoke with Kenisha, and she is still wishing that patient would go to a facility [facility] to care for the patient and recounts episode at home when he wanted to drive out the garage in a car with the covers on the car. Hospitalist encouraged Kenisha to be more truthful in communicating these wishes to the patient so that the patient will not be confused about hospital dispositions. Patient counseled that medications are being slowly titrated in the hospital for now Atrial fibrillation [facility] current use of anticoagulants -continue Digoxin 0.125 mcg every Wed/Wed/Wednesday -there was a duration of time when coumadin held in hospital because of mildly supratherapeutic INR -INR is 2.6 on 03/28/2020 and coumadin to be resumed as 4 mg daily -heart rates okay without metoprolol, no further metoprolol at this time History of Deep Vein Thrombosis and History of Pulmonary Embolism -On chronic Coumadin anticoagulation Chronic systolic right ventricular Congestive Heart Failure Cirrhosis of liver with portal hypertension -Right-sided heart failure/cor pulmonale as per records (EF 55%, 2019) -Cirrhosis/portal hypertension as per records, past alcohol use -stable -is on fluid restriction -there was a duration of time when torsemide and spirolactone were held because of renal function and blood pressures. gradually resume tamsulosin and spirolactone as low doses BID starting on 03/28/2020 -history of hypertension is questionable Chronic respiratory failure secondary to COPD/pulmonary fibrosis -on home oxygen, continue as needed -Tobacco use history -03/14/2020 COVID test negative. because of likely placement to facility in near future, COVID screen to be re-tested on 03/28/2020; there is no suspicion for COVID symptoms at this time and therefor no need for isolation unless test returns as positive Elevated TSH -TSH 8, Free T4 is normal -will need Thyroid function tests to be repeated in the future to rule out hypothyroidism DVT prophylaxis: on coumadin with therapeutic INR Full code as per . Admission and Anticipated Discharge Date Admission Date: March 13, 2020 Subjective Patient seen and examined this AM and answer questions appropriately but under the impression that he would ultimately be able to go home. He was accurate in giving his 's number Kenisha ([phone]) and in my conversation with Kenisha, she has been on the phone with the patient and in trying to keep the patient calm and happy she has been telling him that she would pick him up from hospital eventually. I spoke with Kenisha, and she is still wishing that patient would go to a facility [facility] to care for the patient and recounts episode at home when he wanted to drive out the garage in a car with the covers on the car. Hospitalist encouraged Kenisha to be more truthful in communicating these wishes to the patient so that the patient will not be confused about hospital dispositions. Patient counseled that medications are being slowly titrated in the hospital for now on nasal cannula oxygen. no acute shortness of breath. no chest pain. no abdomen pain. no dizziness. no headache Review of Systems Review of Systems: All systems reviewed & are unremarkable except as noted in Subjective Physical Exam Constitutional: cooperative Eyes: PERRL, conjunctivae normal, anicteric sclerae EOM intact bilaterally ENMT: external ear and nose normal, oropharynx normal Neck: normal visual inspection Respiratory: normal respiratory effort, lungs clear to auscultation Cardiovascular: Rate/Rhythm: regular rate Chest (Breasts): normal inspection/palpation of breasts (male gynecomastia) Gastrointestinal (Abdomen): Inspection/Auscultation: abdomen normal to inspection Percussion/Palpation: abdomen soft Musculoskeletal: Head/Neck/Chest: normocephalic Neurologic: PERRL, EOMI, accommodation nl, no face palsy, no dysarthria Psychiatric: Orientation: alert, oriented to person, oriented to place and cooperative Results & Data Results & Data ([facility]) Vital Signs (Past 12 Hours) Vital Signs Temp Pulse Pulse Resp BP BP Pulse Ox 03/28/20 07:43 36.4 C L 90 18 106/70 93 03/27/20 23:33 36.5 C 89 22 112/67 97 (1) Dementia Dementia behavioral disturbance: with behavioral disturbance Dementia type: unspecified type Qualified Code(s): F03.91 - Unspecified dementia with behavioral disturbance
[2020-03-28] MEDS: POLYETHYLENE (MIRALAX) 17 GM PACK PO SCH ×2 (08:45→20:55)
[2020-03-28] MEDS: PANTOprazole 40 MG TAB PO SCH (08:46)
[2020-03-28] MEDS: SENNA 8.6 MG TAB PO SCH (08:46)
[2020-03-28] MEDS: TAMSULOSIN HCL 0.4 MG CAP PO SCH (08:46)
[2020-03-28] MEDS: LACTOBACILLUS ACIDOPHILUS (FLORANEX) TAB PO SCH (08:46)
[2020-03-28] MEDS: TORSEMIDE 10 MG TAB PO SCH ×2 (08:50→20:56)
[2020-03-28] MEDS ORDERED: SPIRONOLACTONE 12.5 MG TAB PO SCH (09:00)
[2020-03-28] MEDS: WARFARIN SOD 4 MG TAB PO SCH (16:23)
[2020-03-28] MEDS: MIRTAZAPINE TAB 15 MG TAB PO SCH (20:55)
[2020-03-28] MEDS: MAGNESIUM OXIDE 400 MG TAB PO SCH (20:56)
[2020-03-28] MEDS: ESCITALOPRAM OXALATE 10 MG TAB PO SCH (20:56)
[2020-03-29] MEDS: ZOLPIDEM TARTRATE 5 MG TAB PO PRN (00:04)
[2020-03-29 06:00] LABS: Prothrombin Time 20.8 Seconds (9.0-12.0)
[2020-03-29 06:13] LABS: Albumin Level 3.1 gm/dl (3.4-5.0); BUN Creatinine Ratio 20.7 (10-20); Calcium 9.1 mg/dl (8.5-10.1); Creatinine Clr Calc Pharmacy 74.3 ml/min; Est GFR (African American) 100.7; Est GFR (Non-African American) 86.9; Magnesium 1.9 mg/dl (1.8-2.4); Potassium 4.3 mmol/L (3.5-5.1)
[2020-03-29 06:15] LABS: Albumin Globulin Ratio 0.7 (0.9-2); Bilirubin,Total 2.6 mg/dl (0.2-1); Globulin 4.5 gm/dl (2.5-4.0); Phosphorus 2.6 mg/dl (2.5-4.9); Total Protein 7.6 gm/dl (6.4-8.2)
[2020-03-29] MEDS: LACTOBACILLUS ACIDOPHILUS (FLORANEX) TAB PO SCH (08:50)
[2020-03-29] MEDS: POLYETHYLENE (MIRALAX) 17 GM PACK PO SCH ×2 (08:50→20:50)
[2020-03-29] MEDS: TAMSULOSIN HCL 0.4 MG CAP PO SCH (08:51)
[2020-03-29] MEDS: SENNA 8.6 MG TAB PO SCH (08:51)
[2020-03-29] MEDS: PANTOprazole 40 MG TAB PO SCH (08:51)
--- NOTE | 2020-03-29 10:39 | Hospitalist Progress Note ---
Date of Service March 29, 2020 Assessment & Plan (1) Dementia: Acute frontotemporal dementia with behavioral disturbance Deconditioning -Memory impairment/behavioral changes in last 2 months -neurology and psychiatry were consulted in context of behavior and for any possibility for suicidality or for mood disorder -current active medication list includes PRN Zyprexa if combativeness or agitation -behaviors have been reported to be better recently -1 to1 observation orders discontinued on 03/27/2020 -awaiting placement options -03/28/2020: Patient seen and examined this AM and answer questions appropriately but under the impression that he would ultimately be able to go home. He was accurate in giving his 's number Kenisha ([phone]) and in my conversation with Kenisha, she has been on the phone with the patient and in trying to keep the patient calm and happy she has been telling him that she would pick him up from hospital eventually. I spoke with Kenisha, and she is still wishing that patient would go to a facility [place] [facility] to care for the patient and recounts episode at home when he wanted to drive out the garage in a car with the covers on the car. Hospitalist encouraged Kenisha to be more truthful in communicating these wishes to the patient so that the patient will not be confused about hospital dispositions. Patient counseled that medications are being slowly titrated in the hospital for now -03/29/2020: patient again wishes to go home but he was explained by medical doctor that there is no one to pick him up and that reviewing his PT/OT notes of his ambulation issues for which he benefits to [facility] to [facility]. Patient is calm and cooperative and receptive to listening to medical doctor assessment to date. From mental status point of view, patient appears to answer questions appropriately. patient denies acute pain or acute shortness breath or other symptoms Atrial fibrillation [facility] current use of anticoagulants -continue Digoxin 0.125 mcg every Wed/Wed/Wednesday -there was a duration of time when coumadin held in hospital because of mildly supratherapeutic INR -INR is 2.6 on 03/28/2020 and coumadin to be resumed as 4 mg daily -heart rates okay without metoprolol, no further metoprolol at this time History of Deep Vein Thrombosis and History of Pulmonary Embolism -On chronic Coumadin anticoagulation Chronic systolic right ventricular Congestive Heart Failure Cirrhosis of liver with portal hypertension Chronic Hyponatremia -Right-sided heart failure/cor pulmonale as per records (EF 55%, 2019) -Cirrhosis/portal hypertension as per records, past alcohol use -stable -is on fluid restriction -BNP 3823 on 03/12/2020 -there was a duration of time when torsemide and spirolactone were held because of renal function and blood pressures. given tamsulosin and spirolactone as low doses BID starting on 03/28/2020 - held diuretics on 03/29/2020 because serum sodium 125. BNP is 3226 on 03/29/2020 which is reduced compred to admission BNP, a CXR is ordered -history of hypertension is questionable Chronic respiratory failure secondary to COPD/pulmonary fibrosis -on home oxygen, continue as needed -Tobacco use history -03/14/2020 COVID test negative. because of likely placement to facility in near future, COVID screen to be re-tested on 03/28/2020; there is no suspicion for COVID symptoms at this time and therefor no need for isolation unless test returns as positive Elevated TSH -TSH 8, Free T4 is normal -will need Thyroid function tests to be repeated in the future to rule out hypothyroidism DVT prophylaxis: on coumadin with therapeutic INR Full code as per . Admission and Anticipated Discharge Date Admission Date: March 13, 2020 Subjective patient again wishes to go home but he was explained by medical doctor that there is no one to pick him up and that reviewing his PT/OT notes of his ambulation issues for which he benefits to placement to [facility]. Patient is calm and cooperative and receptive to listening to medical doctor assessment to date. From mental status point of view, patient appears to answer questions appropriately. patient denies acute pain or acute shortness breath or other symptoms held diuretics on 03/29/2020 because serum sodium 125. BNP is 3226 on 03/29/2020 and a CXR is ordered Review of Systems Review of Systems: All systems reviewed & are unremarkable except as noted in Subjective Physical Exam Constitutional: cooperative Eyes: PERRL, conjunctivae normal, anicteric sclerae EOM intact bilaterally ENMT: external ear and nose normal, oropharynx normal Neck: normal visual inspection Respiratory: normal respiratory effort, lungs clear to auscultation Cardiovascular: Rate/Rhythm: regular rate Chest (Breasts): normal inspection/palpation of breasts (male gynecomastia) Gastrointestinal (Abdomen): Inspection/Auscultation: abdomen normal to inspection Percussion/Palpation: abdomen soft Musculoskeletal: Head/Neck/Chest: normocephalic Neurologic: PERRL, EOMI, accommodation nl, no face palsy, no dysarthria Psychiatric: Orientation: alert, oriented to person, oriented to place and cooperative Results & Data Results & Data ([facility]) Vital Signs (Past 12 Hours) Vital Signs Temp Pulse Resp BP BP Pulse Ox 03/29/20 07:32 36.8 C 101 H 18 111/77 92 03/29/20 03:15 93/60 L 03/28/20 23:14 36.6 C 86 22 90/55 L 92 (1) Dementia Dementia behavioral disturbance: with behavioral disturbance Dementia type: unspecified type Qualified Code(s): F03.91 - Unspecified dementia with behavioral disturbance
--- NOTE | 2020-03-29 11:26 | XRay Report ---
XR chest 1V portable CLINICAL HISTORY: elevated BNP COMPARISON STUDY: Chest radiograph March 12, 2020. FINDINGS: There is no pneumothorax. Trace right pleural effusion is noted. Diffuse interstitial thick ening has likely slightly increased. Cardiomediastinal silhouette is stable. There is no lobar consol idation. IMPRESSION: Suspected slight increase in interstitial thickening. This may reflect pulmonary edema s uperimposed upon interstitial lung disease. ACT 112: Negative or not required by law. Electronically signed by: Ray Matthew M.D. 03/29/2020 11:25 AM
[2020-03-29] MEDS ORDERED: FUROSEMIDE 20 MG in SYRINGE 0 ML IV ONE (16:00)
[2020-03-29] MEDS: DIGOXIN 0.125 MG TAB PO SCH (16:15)
[2020-03-29] MEDS: WARFARIN SOD 4 MG TAB PO SCH (16:16)
[2020-03-29] MEDS: ESCITALOPRAM OXALATE 10 MG TAB PO SCH (20:50)
[2020-03-29] MEDS: MAGNESIUM OXIDE 400 MG TAB PO SCH (20:51)
[2020-03-29] MEDS: MIRTAZAPINE TAB 15 MG TAB PO SCH (20:52)
[2020-03-30] MEDS: OLANZAPINE 2.5 MG TAB PO PRN (01:17)
[2020-03-30 05:28] LABS: Prothrombin Time 20.5 Seconds (9.0-12.0)
[2020-03-30 05:53] LABS: Calcium 8.8 mg/dl (8.5-10.1); Est GFR (African American) 109.4; Est GFR (Non-African American) 94.4; Magnesium 1.9 mg/dl (1.8-2.4); Potassium 4.1 mmol/L (3.5-5.1)
[2020-03-30 06:04] LABS: Albumin Globulin Ratio 0.7 (0.9-2); Bilirubin,Total 2.8 mg/dl (0.2-1); Globulin 4.5 gm/dl (2.5-4.0); Thyroid Stimulating Hormone 5.31 uIu/ml (0.300-4.500); Total Protein 7.5 gm/dl (6.4-8.2)
[2020-03-30 06:16] LABS: T4 Free Thyroxine 1.56 ng/dl (0.8-1.6)
[2020-03-30] MEDS: TAMSULOSIN HCL 0.4 MG CAP PO SCH (08:27)
[2020-03-30] MEDS: LACTOBACILLUS ACIDOPHILUS (FLORANEX) TAB PO SCH (08:27)
[2020-03-30] MEDS: PANTOprazole 40 MG TAB PO SCH (08:28)
[2020-03-30] MEDS: SENNA 8.6 MG TAB PO SCH (08:28)
[2020-03-30] MEDS: POLYETHYLENE (MIRALAX) 17 GM PACK PO SCH ×2 (10:10→21:40)
--- NOTE | 2020-03-30 12:17 | Hospitalist Progress Note ---
Date of Service March 30, 2020 Assessment & Plan (1) Dementia: Acute frontotemporal dementia with behavioral disturbance Deconditioning -Memory impairment/behavioral changes in last 2 months -neurology and psychiatry were consulted in context of behavior and for any possibility for suicidality or for mood disorder -current active medication list includes PRN Zyprexa if combativeness or agitation -behaviors have been reported to be better recently -1 to1 observation orders discontinued on 03/27/2020 -awaiting placement options -03/28/2020: Patient seen and examined this AM and answer questions appropriately but under the impression that he would ultimately be able to go home. He was accurate in giving his 's number Kenisha ([phone]) and in my conversation with Kenisha, she has been on the phone with the patient and in trying to keep the patient calm and happy she has been telling him that she would pick him up from hospital eventually. I spoke with Kenisha, and she is still wishing that patient would go to a facility residential to care for the patient and recounts episode at home when he wanted to drive out the garage in a car with the covers on the car. Hospitalist encouraged Kenisha to be more truthful in communicating these wishes to the patient so that the patient will not be confused about hospital dispositions. Patient counseled that medications are being slowly titrated in the hospital for now -03/29/2020: patient again wishes to go home but he was explained by medical doctor that there is no one to pick him up and that reviewing his PT/OT notes of his ambulation issues for which he benefits to placement to long term facility. Patient is calm and cooperative and receptive to listening to medical doctor assessment to date. From mental status point of view, patient appears to answer questions appropriately. patient denies acute pain or acute shortness breath or other symptoms -03/30/2020: Patient seen and examined at bedside. no acute distress. denies pain. denies other symptoms. he needed assistance of nurses to take him to bathroom. He again talked about wanting to go home. Hospitalist doctor talked about case management plans for possible post-hospital stay at [facility] and patient appears agreeable for this outcome Atrial fibrillation [facility] current use of anticoagulants -continue Digoxin 0.125 mcg every Wed/Wed/Wednesday -there was a duration of time when coumadin held in hospital because of mildly supratherapeutic INR -INR is 2.6 on 03/28/2020 and coumadin resumed as 4 mg daily, INR currently is 2, continue coumadin -heart rates controlled without beta blockers History of Deep Vein Thrombosis and History of Pulmonary Embolism -On chronic Coumadin anticoagulation Chronic systolic right ventricular Congestive Heart Failure Cirrhosis of liver with portal hypertension Chronic Hyponatremia -Right-sided heart failure/cor pulmonale as per records (EF 55%, 2019) -Cirrhosis/portal hypertension as per records, past alcohol use -stable -is on fluid restriction -BNP 3823 on 03/12/2020 -history of hypertension is questionable as patient's blood pressures generally low normotensive -there was a duration of time when torsemide and spironolactone were held b ecause of renal function and blood pressures. given torsemide and spironolactone as low doses BID starting on 03/28/2020 -held diuretics on 03/29/2020 because serum sodium 125. BNP was 3226 which is red uced compared to admission BNP and then Lasix 20 mg IV x 1 given after CXR reviewed -resume torsemide as 10 mg BID and spironolactone 12.5 mg daily starting on 03/30/2020 Elevated TSH -TSH 7.5 (elevated) on 03/12/2020 and repeat test on 03/13/2020 as 8.4 , Free T4 1.41 (normal) on 03/12/2020 -repeated TSH as 5.3 (elevated) and free T4 as 1.76 (normal) on 03/30/2020 Chronic respiratory failure secondary to COPD/pulmonary fibrosis -on home oxygen, continue as needed -Tobacco use history -03/14/2020 COVID test negative. COVID screen retested on 03/28/2020 is negative to update the screening status. DVT prophylaxis: on coumadin with therapeutic INR Full code as per . Disposition: there are case management plans for possible post-hospital disposition to [facility] in the coming weekdays of April Admission and Anticipated Discharge Date Admission Date: March 13, 2020 Subjective Patient seen and examined at bedside. no acute distress. denies pain. denies other symptoms. he needed assistance of nurses to take him to bathroom. He again talked about wanting to go home. Hospitalist doctor talked about case management plans for possible post-hospital stay at [facility] and patient appears agreeable for this outcome. Review of Systems Review of Systems: All systems reviewed & are unremarkable except as noted in Subjective Physical Exam Constitutional: cooperative Eyes: PERRL, conjunctivae normal, anicteric sclerae EOM intact bilaterally ENMT: external ear and nose normal, oropharynx normal Neck: normal visual inspection Respiratory: normal respiratory effort, lungs clear to auscultation Cardiovascular: Rate/Rhythm: regular rate Chest (Breasts): normal inspection/palpation of breasts (male gynecomastia) Gastrointestinal (Abdomen): Inspection/Auscultation: abdomen normal to inspection Percussion/Palpation: abdomen soft Musculoskeletal: Head/Neck/Chest: normocephalic Neurologic: PERRL, EOMI, accommodation nl, no face palsy, no dysarthria Psychiatric: Orientation: alert, oriented to person, oriented to place and cooperative Results & Data Results & Data ([facility]) Vital Signs (Past 12 Hours) Vital Signs Temp Pulse Resp BP Pulse Ox 03/30/20 07:30 36.7 C 88 18 100/65 92 (1) Dementia Dementia behavioral disturbance: with behavioral disturbance Dementia type: unspecified type Qualified Code(s): F03.91 - Unspecified dementia with behavio ral disturbance
[2020-03-30] MEDS: TORSEMIDE 10 MG TAB PO SCH ×2 (12:34→17:23)
[2020-03-30] MEDS: SPIRONOLACTONE 12.5 MG TAB PO SCH (13:38)
[2020-03-30] MEDS: WARFARIN SOD 4 MG TAB PO SCH (15:41)
[2020-03-30] MEDS: ESCITALOPRAM OXALATE 10 MG TAB PO SCH (21:39)
[2020-03-30] MEDS: ZOLPIDEM TARTRATE 5 MG TAB PO PRN (21:39)
[2020-03-30] MEDS: MAGNESIUM OXIDE 400 MG TAB PO SCH (21:39)
[2020-03-30] MEDS: MIRTAZAPINE TAB 15 MG TAB PO SCH (21:40)
[2020-03-31 07:13] LABS: Basophils # (auto) 0.03 K/uL (0-0.2); Basophils % (auto) 0.5 %; Eosinophils # (auto) 0.14 K/uL (0-0.5); Eosinophils % (auto) 2.3 %; Hemoglobin 16.8 g/dL (14.0-18.0); Immature Granulocytes # (auto) 0.01 K/uL (0.00-0.02); Immature Granulocytes % (auto) 0.2 %; Lymphocytes # (auto) 1.77 K/uL (1.2-3.4); Lymphocytes % (auto) 28.8 %; Mean Corpuscular Hemoglobin 32.1 pg (25-34); Mean Corpuscular Volume 91.6 fL (80-100); Mean Platelet Volume 10.4 fL (7.4-10.4); Monocytes # (auto) 0.47 K/uL (0.11-0.59); Monocytes % (auto) 7.6 %; Neutrophils # (auto) 3.73 K/uL (1.4-6.5); Neutrophils % (auto) 60.6 %; Platelet Count 105 K/uL (130-400); RDW Coefficient of Variation 15.1 % (11.5-14.5); RDW Standard Deviation 51.2 fL (36.4-46.3); Red Blood Count 5.24 M/uL (4.7-6.1); White Blood Count 6.15 K/uL (4.8-10.8)
[2020-03-31 07:21] LABS: INR 2.3 (0.9-1.1)
[2020-03-31 07:44] LABS: BUN Creatinine Ratio 20.6 (10-20); Calcium 8.8 mg/dl (8.5-10.1); Creatinine Clr Calc Pharmacy 80.5 ml/min; Est GFR (Non-African American) 90.6; Potassium 4.2 mmol/L (3.5-5.1)
--- NOTE | 2020-03-31 07:56 | Hospitalist Progress Note ---
Date of Service March 31, 2020 Assessment & Plan (1) Dementia: Acute frontotemporal dementia with behavioral disturbance Deconditioning -Memory impairment/behavioral changes in last 2 months -neurology and psychiatry were consulted in context of behavior and for any possibility for suicidality or for mood disorder -current active medication list includes PRN Zyprexa if combativeness or agitation -behaviors have been reported to be better recently -1 to1 observation orders discontinued on 03/27/2020 -awaiting placement options -03/28/2020: Patient seen and examined this AM and answer questions appropriately but under the impression that he would ultimately be able to go home. He was accurate in giving his 's number Kenisha ([phone]) and in my conversation with Kenisha, she has been on the phone with the patient and in trying to keep the patient calm and happy she has been telling him that she would pick him up from hospital eventually. I spoke with Kenisha, and she is still wishing that patient would go to a facility [place] to care for the patient and recounts episode at home when he wanted to drive out the garage in a car with the covers on the car. Hospitalist encouraged Kenisha to be more truthful in communicating these wishes to the patient so that the patient will not be confused about hospital dispositions. Patient counseled that medications are being slowly titrated in the hospital for now -03/29/2020: patient again wishes to go home but he was explained by medical doctor that there is no one to pick him up and that reviewing his PT/OT notes of his ambulation issues for which he benefits to placement to [facility] facility. Patient is calm and cooperative and receptive to listening to medical doctor assessment to date. From mental status point of view, patient appears to answer questions appropriately. patient denies acute pain or acute shortness breath or other symptoms -03/30/2020: Patient seen and examined at bedside. no acute distress. denies pain. denies other symptoms. he needed assistance of nurses to take him to bathroom. He again talked about wanting to go home. Hospitalist doctor talked about case management plans for possible post-hospital stay at [facility] and patient appears agreeable for this outcome -03/31/2020: no acute events, patient reported poor sleep. continues to be pleasant and cooperative. he is agreeable to [facility] when possible. No chest pain, no shortness of breath, no abdomen pain, no vomiting, no dizziness, no headache Atrial fibrillation skilled nursing current use of anticoagulants -continue Digoxin 0.125 mcg every Wed/Wed/Wednesday -there was a duration of time when coumadin held in hospital because of mildly supratherapeutic INR -INR is 2.6 on 03/28/2020 and coumadin resumed as 4 mg daily, INR currently is 2, continue coumadin -heart rates controlled without beta blockers History of Deep Vein Thrombosis and History of Pulmonary Embolism -On chronic Coumadin anticoagulation Chronic systolic right ventricular Congestive Heart Failure 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 given torsemide and spironolactone as low doses BID starting on 03/28/2020 -held diuretics on 03/29/2020 because serum sodium 125. BNP was 3226 which is reduced compared to admission BNP and then Lasix 20 mg IV x 1 given after CXR reviewed -resume torsemide as 10 mg BID and spironolactone 12.5 mg daily starting on 03/30/2020 -03/31/2020. serum sodium 130, continue same diuretic treatment Elevated TSH -TSH 7.5 (elevated) on 03/12/2020 and repeat test on 03/13/2020 as 8.4 , Free T4 1.41 (normal) on 03/12/2020 -repeated TSH as 5.3 (elevated) and free T4 as 1.76 (normal) on 03/30/2020 Chronic respiratory failure secondary to COPD/pulmonary fibrosis -on home oxygen, continue as needed -Tobacco use history -03/14/2020 COVID test negative. COVID screen retested on 03/28/2020 is negative to update the screening status. DVT prophylaxis: on coumadin with therapeutic INR Full code as per . Disposition: there are case management plans for possible post-hospital disposition to [facility] in the coming of April Admission and Anticipated Discharge Date Admission Date: March 13, 2020 Subjective no acute events, patient reported poor sleep. continues to be pleasant and cooperative. he is agreeable to [facility] when possible. No chest pain, no shortness of breath, no abdomen pain, no vomiting, no dizziness, no headache Review of Systems Review of Systems: All systems reviewed & are unremarkable except as noted in Subjective Physical Exam Constitutional: cooperative Eyes: PERRL, conjunctivae normal, anicteric sclerae EOM intact bilaterally ENMT: external ear and nose normal, oropharynx normal Neck: normal visual inspection Respiratory: normal respiratory effort, lungs clear to auscultation Cardiovascular: Rate/Rhythm: regular rate Chest (Breasts): normal inspection/palpation of breasts (male gynecomastia) Gastrointestinal (Abdomen): Inspection/Auscultation: abdomen normal to inspection Percussion/Palpation: abdomen soft Musculoskeletal: Head/Neck/Chest: normocephalic Neurologic: PERRL, EOMI, accommodation nl, no face palsy, no dysarthria Psychiatric: Orientation: alert, oriented to person, oriented to place and cooperative Results & Data Results & Data ([facility]) Vital Signs (Past 12 Hours) Vital Signs Temp Pulse Pulse Resp BP BP Pulse Ox 03/31/20 07:28 36.4 C L 86 18 103/65 91 03/31/20 00:39 108/64 03/30/20 23:22 36.5 C 89 22 89/57 L 91 (1) Dementia Dementia behavioral disturbance: with behavioral disturbance Dementia type: unspecified type Qualified Code(s): F03.91 - Unspecified dementia with behavioral disturbance
[2020-03-31] MEDS: TORSEMIDE 10 MG TAB PO SCH ×2 (08:24→17:42)
[2020-03-31] MEDS: SPIRONOLACTONE 12.5 MG TAB PO SCH (08:25)
[2020-03-31] MEDS: LACTOBACILLUS ACIDOPHILUS (FLORANEX) TAB PO SCH (08:25)
[2020-03-31] MEDS: PANTOprazole 40 MG TAB PO SCH (08:25)
[2020-03-31] MEDS: TAMSULOSIN HCL 0.4 MG CAP PO SCH (08:26)
[2020-03-31] MEDS: SENNA 8.6 MG TAB PO SCH (08:26)
[2020-03-31] MEDS: POLYETHYLENE (MIRALAX) 17 GM PACK PO SCH ×2 (10:12→19:50)
[2020-03-31] MEDS: WARFARIN SOD 4 MG TAB PO SCH (17:42)
[2020-03-31] MEDS: MIRTAZAPINE TAB 15 MG TAB PO SCH (20:00)
[2020-03-31] MEDS: ZOLPIDEM TARTRATE 5 MG TAB PO PRN (20:00)
[2020-03-31] MEDS: ESCITALOPRAM OXALATE 10 MG TAB PO SCH (20:00)
[2020-03-31] MEDS: MAGNESIUM OXIDE 400 MG TAB PO SCH (20:00)
[2020-03-31] MEDS: OLANZAPINE 2.5 MG TAB PO PRN (23:55)
--- NOTE | 2020-04-01 07:53 | Hospitalist Progress Note ---
Date of Service April 01, 2020 Assessment & Plan (1) Dementia: Acute frontotemporal dementia with behavioral disturbance Deconditioning -Memory impairment/behavioral changes in last 2 months -neurology and psychiatry were consulted in context of behavior and for any possibility for suicidality or for mood disorder -current active medication list includes PRN Zyprexa if combativeness or agitation -behaviors have been reported to be better recently -1 to1 observation orders discontinued on 03/27/2020 -awaiting placement options -03/28/2020: Patient seen and examined this AM and answer questions appropriately but under the impression that he would ultimately be able to go home. He was accurate in giving his 's number Kenisha ([phone]) and in my conversation with Kenisha, she has been on the phone with the patient and in trying to keep the patient calm and happy she has been telling him that she would pick him up from hospital eventually. I spoke with Kenisha, and she is still wishing that patient would go to a facility terminal press operator to care for the patient and recounts episode at home when he wanted to drive out the garage in a car with the covers on the car. Hospitalist encouraged Kenisha to be more truthful in communicating these wishes to the patient so that the patient will not be confused about hospital dispositions. Patient counseled that medications are being slowly titrated in the hospital for now -03/29/2020: patient again wishes to go home but he was explained by medical doctor that there is no one to pick him up and that reviewing his PT/OT notes of his ambulation issues for which he benefits [facility]. Patient is calm and cooperative and receptive to listening to medical doctor assessment to date. From mental status point of view, patient appears to answer questions appropriately. patient denies acute pain or acute shortness breath or other symptoms -03/30/2020: Patient seen and examined at bedside. no acute distress. denies pain. denies other symptoms. he needed assistance of nurses to take him to bathroom. He again talked about wanting to go home. Hospitalist doctor talked about case management plans for possible post-hospital stay at [facility] and patient appears agreeable for this outcome -03/31/2020: no acute events, patient reported poor sleep. continues to be pleasant and cooperative. he is agreeable to [facility] when possible. No chest pain, no shortness of breath, no abdomen pain, no vomiting, no dizziness, no headache -04/01/2020: no changes to medical plan, continue current medications Atrial fibrillation intermediate current use of anticoagulants -continue Digoxin 0.125 mcg every Wed/Wed/Wednesday -there was a duration of time when coumadin held in hospital because of mildly supratherapeutic INR -INR is 2.6 on 03/28/2020 and coumadin resumed as 4 mg daily, INR currently is 2, continue coumadin . 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 given torsemide and spironolactone as low doses BID starting on 03/28/2020 -held diuretics on 03/29/2020 because serum sodium 125. BNP was 3226 which is reduced compared to admission BNP and then Lasix 20 mg IV x 1 given after CXR reviewed -resume torsemide as 10 mg BID and spironolactone 12.5 mg daily starting on 03/30/2020 -03/31/2020. serum sodium 130, continue same diuretic treatment; -04/01/2020: no changes to medical plan, continue current medications Elevated TSH -TSH 7.5 (elevated) on 03/12/2020 and repeat test on 03/13/2020 as 8.4 , Free T4 1.41 (normal) on 03/12/2020 -repeated TSH as 5.3 (elevated) and free T4 as 1.76 (normal) on 03/30/2020 Chronic respiratory failure secondary to COPD/pulmonary fibrosis -on home oxygen, continue as needed -Tobacco use history -03/14/2020 COVID test negative. COVID screen retested on 03/28/2020 is negative to update the screening status. DVT prophylaxis: on coumadin with therapeutic INR Full code as per . Disposition: there are case management plans for possible post-hospital disposition to [facility] in the coming of April Admission and Anticipated Discharge Date Admission Date: March 13, 2020 Subjective patient needed assistance obtaining a working phone so that he can call his . no acute distress. laying on the bed. he denies acute shortness of breath or chest pain or abdominal pain. patient generally laying on the bed. no distress Review of Systems Review of Systems: All systems reviewed & are unremarkable except as noted in Subjective Physical Exam Constitutional: cooperative Eyes: PERRL, conjunctivae normal, anicteric sclerae EOM intact bilaterally ENMT: external ear and nose normal, oropharynx normal Neck: normal visual inspection Respiratory: normal respiratory effort, lungs clear to auscultation Cardiovascular: Rate/Rhythm: regular rate Chest (Breasts): normal inspection/palpation of breasts (male gynecomastia) Gastrointestinal (Abdomen): Inspection/Auscultation: abdomen normal to inspection Percussion/Palpation: abdomen soft Musculoskeletal: Head/Neck/Chest: normocephalic Neurologic: PERRL, EOMI, accommodation nl, no face palsy, no dysarthria Psychiatric: Orientation: alert, oriented to person, oriented to place and cooperative Results & Data Results & Data ([facility]) Vital Signs (Past 12 Hours) Vital Signs Temp Pulse Resp BP Pulse Ox 03/31/20 23:22 36.3 C L 92 H 14 92/54 L 92 (1) Dementia Dementia behavioral disturbance: with behavioral disturbance Dementia type: unspecified type Qualified Code(s): F03.91 - Unspecified dementia with behavioral disturbance
[2020-04-01] MEDS: TAMSULOSIN HCL 0.4 MG CAP PO SCH (08:08)
[2020-04-01] MEDS: PANTOprazole 40 MG TAB PO SCH (08:08)
[2020-04-01] MEDS: SPIRONOLACTONE 12.5 MG TAB PO SCH (08:08)
[2020-04-01] MEDS: LACTOBACILLUS ACIDOPHILUS (FLORANEX) TAB PO SCH (08:09)
[2020-04-01] MEDS: SENNA 8.6 MG TAB PO SCH (08:09)
[2020-04-01] MEDS: TORSEMIDE 10 MG TAB PO SCH ×2 (08:09→18:16)
[2020-04-01] MEDS: POLYETHYLENE (MIRALAX) 17 GM PACK PO SCH ×2 (09:42→22:10)
[2020-04-01] MEDS: WARFARIN SOD 4 MG TAB PO SCH (16:54)
[2020-04-01] MEDS: DIGOXIN 0.125 MG TAB PO SCH (16:54)
[2020-04-01] MEDS: MIRTAZAPINE TAB 15 MG TAB PO SCH (20:19)
[2020-04-01] MEDS: ESCITALOPRAM OXALATE 10 MG TAB PO SCH (20:20)
[2020-04-01] MEDS: MAGNESIUM OXIDE 400 MG TAB PO SCH (20:21)
[2020-04-01] MEDS: ZOLPIDEM TARTRATE 5 MG TAB PO PRN (20:24)
[2020-04-02] MEDS: TORSEMIDE 10 MG TAB PO SCH (08:48)
[2020-04-02] MEDS: SPIRONOLACTONE 12.5 MG TAB PO SCH (08:48)
[2020-04-02] MEDS: LACTOBACILLUS ACIDOPHILUS (FLORANEX) TAB PO SCH (08:48)
[2020-04-02] MEDS: POLYETHYLENE (MIRALAX) 17 GM PACK PO SCH (08:48)
[2020-04-02] MEDS: SENNA 8.6 MG TAB PO SCH (08:48)
[2020-04-02] MEDS: TAMSULOSIN HCL 0.4 MG CAP PO SCH (08:49)
[2020-04-02] MEDS: PANTOprazole 40 MG TAB PO SCH (08:49)
--- NOTE | 2020-04-02 09:45 | Hospitalist Progress Note ---
Date of Service April 02, 2020 Assessment & Plan (1) Dementia: Acute frontotemporal dementia with behavioral disturbance Deconditioning -Memory impairment/behavioral changes in last 2 months -neurology and psychiatry were consulted in context of behavior and for any possibility for suicidality or for mood disorder -current active medication list includes PRN Zyprexa if combativeness or agitation -behaviors have been reported to be better recently -1 to1 observation orders discontinued on 03/27/2020 -awaiting placement options -03/28/2020: Patient seen and examined this AM and answer questions appropriately but under the impression that he would ultimately be able to go home. He was accurate in giving his 's number Kenisha ([phone]) and in my conversation with Kenisha, she has been on the phone with the patient and in trying to keep the patient calm and happy she has been telling him that she would pick him up from hospital eventually. I spoke with Kenisha, and she is still wishing that patient would go to a facility moth exterminator to care for the patient and recounts episode at home when he wanted to drive out the garage in a car with the covers on the car. Hospitalist encouraged Kenisha to be more truthful in communicating these wishes to the patient so that the patient will not be confused about hospital dispositions. Patient counseled that medications are being slowly titrated in the hospital for now -03/29/2020: patient again wishes to go home but he was explained by medical doctor that there is no one to pick him up and that reviewing his PT/OT notes of his ambulation issues for which he benefits to placement to shelter facility. Patient is calm and cooperative and receptive to listening to medical doctor assessment to date. From mental status point of view, patient appears to answer questions appropriately. patient denies acute pain or acute shortness breath or other symptoms -03/30/2020: Patient seen and examined at bedside. no acute distress. denies pain. denies other symptoms. he needed assistance of nurses to take him to bathroom. He again talked about wanting to go home. Hospitalist doctor talked about case management plans for possible post-hospital stay at [facility] and patient appears agreeable for this outcome -03/31/2020: no acute events, patient reported poor sleep. continues to be pleasant and cooperative. he is agreeable to [facility] when possible. 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 given torsemide and spironolactone as low doses BID starting on 03/28/2020 -held diuretics on 03/29/2020 because serum sodium 125. BNP was 3226 which is reduced compared to admission BNP and then Lasix 20 mg IV x 1 given after CXR reviewed -resume torsemide as 10 mg BID and spironolactone 12.5 mg daily starting on 03/30/2020 -03/31/2020. serum sodium 130, continue same diuretic treatment; 04/01/2020; 04/02/2020: no changes to medication plan, continue current medications Elevated TSH -TSH 7.5 (elevated) on 03/12/2020 and repeat test on 03/13/2020 as 8.4 , Free T4 1.41 (normal) on 03/12/2020 -repeated TSH as 5.3 (elevated) and free T4 as 1.76 (normal) on 03/30/2020 Chronic respiratory failure secondary to COPD/pulmonary fibrosis -on home oxygen, continue as needed -Tobacco use history -03/14/2020 COVID test negative. COVID screen retested on 03/28/2020 is negative to update the screening status. DVT prophylaxis: on coumadin with therapeutic INR Full code as per . Disposition: plan is to discharge to [facility], note that patient will be discharged from the hospital stay with far less diuretic medications because on hospital assessments of volume status and blood pressures. Patient should have primary care doctor see him in 1 week of hospital discharge for repeat weights, blood pressure checks, CBC, comprehensive metabolic panel and INR. target INR is 2 to 3 Admission and Anticipated Discharge Date Admission Date: March 13, 2020 Subjective Patient finished ambulation with physical therapist while walking with supplementary oxygen. Breathing generally well. no wheezing. he is not in pain. no abdomen pain. no chest pain. no dizziness. no headache. His cognition is fair as he generally answers questions appropriately but he would say things like he would go home first before going to [facility]. When he is discussed that the plan is have him go to [facility] first and as per his 's wishes, patient would be immediately agreeable to the plans and says his helps with making decisions for him Review of Systems Review of Systems: All systems reviewed & are unremarkable except as noted in Subjective Physical Exam Constitutional: cooperative Eyes: PERRL, conjunctivae normal, anicteric sclerae EOM intact bilaterally ENMT: external ear and nose normal, oropharynx normal Neck: normal visual inspection Respiratory: normal respiratory effort, lungs clear to auscultation Cardiovascular: Rate/Rhythm: regular rate Chest (Breasts): normal inspection/palpation of breasts (male gynecomastia) Gastrointestinal (Abdomen): Inspection/Auscultation: abdomen normal to inspection Percussion/Palpation: abdomen soft Musculoskeletal: Head/Neck/Chest: normocephalic Neurologic: PERRL, EOMI, accommodation nl, no face palsy, no dysarthria Psychiatric: Orientation: alert, oriented to person, oriented to place and cooperative Results & Data Results & [facility] ([facility]) Vital Signs (Past 12 Hours) Vital Signs Temp Pulse Resp BP BP Pulse Ox 04/02/20 07:19 36.4 C L 82 19 108/72 93 04/01/20 23:16 36.5 C 96 H 14 99/45 L 92 (1) Dementia Dementia behavioral disturbance: with behavioral disturbance Dementia type: unspecified type Qualified Code(s): F03.91 - Unspecified dementia with behavioral disturbance
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
== END 2020-04-02 14:34 | disposition home or self-care (01) | DRG 57 ==
LOC: ED 17:16 → 2S 17:16 → SUATTDRO 03-13 12:56 → 2S 03-14 09:29 → 2N 03-14 11:51 → 2S 03-14 12:18 → 2W 03-14 12:19 → 3N 03-22 04:06 → 3E 03-24 17:24